=== PATIENT | female | born 1975 | race Caucasian/White ===

== ENCOUNTER 2021-03-12 10:33 | Emergency (ER) | payer MEDICARE, MEDICAID, SELFPAY ==
--- NOTE | ~2021-03-12 | XR_ITS ---
EXAMINATION: XR lumbar spine 2-3V DATE: 03/12/2021 11:37 INDICATION: Low back pain TECHNIQUE: Anteroposterior and lateral views of the lumbar spine, and cone-down lateral view of the l umbosacral junction were obtained. COMPARISON: None. FINDINGS: There is an age-indeterminate compression fracture of L5 with 10% loss of anterior vertebra l body height. Bone alignment is normal. The intervertebral disc spaces are maintained. Surgical clip s in the right upper quadrant are likely from prior cholecystectomy. The bowel gas pattern is normal. IMPRESSION: 1. Age-indeterminate L5 compression fracture. Reviewed, dictated and finalized at location A.
[2021-03-12 10:42] VITALS: BP 138/75; PULSE 78; RESP 20; TEMP 36.8; O2SAT 100
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
--- NOTE | 2021-03-12 11:12 | ECG_ITS ---
Measurements Intervals [place] Rate: 77 P: 42 ME: 117 QRS: 19 QRSD: 101 T: 16 QT: 362 QTc: 410 Interpretive Statements SINUS RHYTHM WITH SHORT ME INTERVAL BORDERLINE ECG Electronically Signed On 03-12-2021 12:09:58 CDT by Nimesh Herrera D.O.
== END 2021-03-12 13:15 | disposition home or self-care (01) ==
PROVIDERS: Emergency Provider Nurse Practitioner; PCP Physician Assistant
DX: S32.058A Other fracture of fifth lumbar vertebra, initial encounter for closed fracture (principal); J45.909 Unspecified asthma, uncomplicated; Z95.0 Presence of cardiac pacemaker; Z87.440 Personal history of urinary (tract) infections; Y04.2XXA Assault by strike against or bumped into by another person, initial encounter; F17.210 Nicotine dependence, cigarettes, uncomplicated; R94.31 Abnormal electrocardiogram [ECG] [EKG]
CPT/HCPCS: 72100; 93005; 99283

== ENCOUNTER 2025-01-24 13:47 | Outpatient (CLI) | payer MEDICARE, SELFPAY ==
--- NOTE | ~2025-01-24 | US_ITS ---
Pelvic ultrasound. Clinical History: Excessive and frequent menstruation Technique: Realtime transabdominal and transvaginal scanning of the pelvis was performed. Color flow Doppler and Doppler spectral analysis were performed. Findings: The uterus is anteverted, and measures 8.9 x 4.2 x 5.1 cm. The endometrial stripe has a th ickness of 5 mm. No focal mass is identified. The right ovary measures 1.7 x 1.1 x 1.6 cm. No significant right ovarian or adnexal mass is seen. The left ovary is not visualized. No significant left ovarian or adnexal mass is seen. There is no evidence of free fluid in the cul de sac. Impression: No significant abnormality seen. Left ovary not visualized. Reviewed, dictated and finalized at [facility]. Impression: No significant abnormality seen. Left ovary not visualized.
== END 2025-01-24 13:48 | disposition home or self-care (01) ==
LOC: MICIMG 13:48
PROVIDERS: PCP Internal Medicine; Visit Provider Obstetrics & Gynecology
DX: N92.0 Excessive and frequent menstruation with regular cycle (principal)
CPT/HCPCS: 76830; 76856

== ENCOUNTER 2025-01-24 14:23 | Outpatient (CLI) | payer MEDICARE, SELFPAY ==
[2025-01-24 14:53] LABS: Basophils Absolute Auto 0.1 K/mm3 (0.0-0.1); Basophils Percent Auto 0.5 % (0.2-1.2); Eosinophils Absolute Auto 0.2 K/mm3 (0-0.3); Eosinophils Percent Auto 1.6 % (0-4.4); Hematocrit 42.1 % (37.0-47.0); Hemoglobin 13.1 g/dL (12.0-15.0); Immature Granulocyte Absolute 0.06 K/mm3 (0.00-0.031); Immature Granulocyte Percent A 0.5 % (0-0.5); Lymphocytes Absolute Auto 3.22 K/mm3 (0.9-3.2); Lymphocytes Percent Auto 25.2 % (18.3-44.2); Mean Corpuscular HGB Conc 31.1 g/dl (32-36); Mean Corpuscular Hemoglobin 26.8 pg (26-34); Mean Corpuscular Volume 86.1 fl (80-100); Mean Platelet Volume 11.5 fl (7.4-10.4); Monocytes Percent Auto 7.4 % (2.6-8.5); Neutrophils Absolute Auto 8.3 K/mm3 (1.3-6.7); Neutrophils Percent Auto 64.8 % (45.5-73.1); Platelet Count Result 216 k/mm3 (150-375); Red Blood Count 4.89 M/mm3 (4.2-5.4); Red Cell Distribution Width 14.2 % (11.5-14.5); White Blood Count 12.8 K/mm3 (4.5-10.0)
--- OUTSIDE RECORDS SUMMARY | 2025-01-24 16:33 | XMS_ITS | Data Portability ---
Author Organization [facility] [employer], Main Office Address [address] [place] [address] Care Team Providers Care Property Disposal Officer Name Role Phone KALEIGH MCGOVERN Primary Care Provider KALEIGH MCGOVERN Referring Provider ROBIN TURNER Geophysical Computer Assessment Encounter Date Assessment Date Assessment LastModified by Organization Details LastModified Time 03/05/2024 03/05/2024 will treat uti with cipro, send urine for c&s will give fluconozole for thrush she requested meds for mucous, will try steroid pack and mucinex she believes those helped in the past, she refused a cxr today; she has long hx of lung and heart disease and I encouraged her to call back if not improving [email or web address] Not available 03/05/2024 12:54:10 07/05/2024 07/05/2024 This note is dictated and transcribed by [employer]. Software Quality Assurance Specialist variances may occur. Despite proofreading, typographical errors may occur. Occasional wrong-word or 'oafkx-g-oekw' substitutions may have occurred due to the inherent limitations of voice recording. Read the chart carefully and recognize, using context, where substitutions have occurred. [email or web address] Not available 07/06/2024 09:12:23 Plan of Treatment Reminders Order Date Submit Date Provider Last Modified By Organization Details Last Modified Time Details Appointments None recorded. Lab CMP, serum or plasma 2024 025 [facility], [address], [address], [place], [address], 09:36:23 urinalysis, dipstick 2023 024 [email or web address] [facility] [address], [address] [place], [address], 4 12:55:47 culture, urine + sensitivity 2023 024 [email or web address] [facility] (Lab), [address] [place], [address], 4 09:44:41 Referral gynecologis t referral - Please call patient to schedule. 2024 025 [email or web address] 52 Cathy Hamilton MD, [address], [address], [place], [address], 5 14:31:38 orthopedic surgeon referral 2023 024 [email or web address] Aixa Rizo DPM, [address] [place], [address], 4 08:24:15 Procedures None recorded. Surgeries None recorded. Imaging XR, ankle, 3 or more view 2023 024 [email or web address] [facility] [place], [address], [place], [address], 4 09:13:57 XR, chest, 2 view 2023 024 [facility] ([facility]), [address] [place], [address], 4 10:37:52 Medication Orders Macrobid 100 mg capsule 2024 025 [facility] #[id number], [address], [place], [place], [id number], 5 16:02:41 rosuvastati n 10 mg tablet [address] [facility]01422, [address], [place], [place], [id number], 5 14:14:08 Breo Ellipta 200 mcg-25 mcg/dose powder for inhalation [address] [facility] #94776, [address] [place], [id number], 5 14:14:08 cetirizine 10 mg tablet [address] [facility] #76261, [address], [id number], 5 14:14:08 ipratropium 0.5 mg-albutero l 3 mg (2.5 mg base)/3 mL nebulizatio n soln 2024 025 [facility] #97154, [address] [place], [id number], 5 12:54:46 Naprosyn 500 mg tablet 2023 024 [facility] #11422, [address] [place], [place], [id number], 4 09:30:41 fluconazole 150 mg tablet 2023 024 [email or web address] [facility] #94999, [address] [place], [id number], 4 15:23:04 Cipro 250 mg tablet 2023 024 [email or web address] [facility] #05055, [address] [place], [id number], 4 09:57:21 Mucus Relief ER 600 mg tablet, extended release 2023 024 [email or web address] [facility] #65508, [address], [place], [place], [id number], 4 11:42:37 Medrol (Perry) 4 mg tablets in a dose pack 2023 024 [email or web address] [facility] #57987, [address], [place], [place], [id number], 15:22:59 Patient TargetsNo targets recorded. Patient Instructions Encounter Date Encounter Id Patient Instructions Last Modified By Organization Details Last Modified Time 10/26/2024 [id number] dementia rating scale-2* Not available 10/26/2024 16:33:10 depression screening* Not available 10/26/2024 16:33:09 alcohol misuse* Not available 10/26/2024 16:33:09 multi-dimensiona l health assessment questionnaire* Not available 10/26/2024 16:33:09 advance directiv es: care instructions Not available 10/26/2024 16:33:09 advance care planning: care instructions Not available 10/26/2024 16:33:09 [place] Advance Directives [email or web address] Not available 10/26/2024 16:33:09 Personalized [facility] Plan and Screening Recommendations Advance Directives - Do you have one? No You have indicated that you are capable of preparing your advance care directive Advance Directives - Do we have your advance directive on file in your health record? No, please bring in a copy at your earliest convenience Primary Prevention/Interven tion (prevents or decreases the chance of common diseases from occurring) Smoking Risk: Smoker Refer to attached smoking cessation handouts Refer to attached handouts and prescription will be sent to pharmacy Continue to consider stopping smoking and call if we can assist you Alcohol Misuse Screening: Negative Weight: Appropriate Overwei ght continue your current weight loss efforts try to lose 5% of your body weight try to lose 10% of your body weight try to lose 15% of your body weight Physical activity: Need more exercise/physical activity minimum of 10-20 minutes of activity that causes mild breathlessness/day Nutrition: Good Average Fall Risk (screened today): Low Vaccines Pneumococcal: Influenza: Chronic Disease Risks Stroke: Low Risk Intermediate Risk I have no recommendations Act jannet diagnosis, Continue current treatment plan Heart Attack: Low risk Intermediate Risk I have no recommendations Act jannet diagnosis, Continue current treatment plan Clogging of the Arteries: Low risk Intermediate Risk I have no recommendations Act jannet diagnosis, Continue current treatment plan Diabetes: Low Risk I have no recommendations Secondary Prevention/Interven tion (detects treatable diseases before they may cause symptoms, disability, or ) Breast Cancer Screening with mammogram: Cervical/Uterine/Ov regla Cancer Screening: Osteoporosis Screening: No screening necessary Date Screening Last Performed: Colon Cancer Screening: Colonoscopy Fecal Occult Blood Cologuard (DNA stool test) In: Ordered Recomme nded Date Screening Last Performed: never Eye Disease Screening: Ordered Recommended today Dementia Risk: Low I have no recommendations Depression Screening: Negative [email or web address] Not available 10/26/2024 13:26:18 Reason for Referral Orthopedic Surgeon Referral for Localized, 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 Referring Physician: Kaleigh Mcgovern, Internal Medicine, Encounter Date: 10/26/2024 Results Created Date Observation Date Name Description Value Unit Range Abnormal Flag Note LastModifiedBy Organization Detail LastModifiedTime 02/19/20 24 02/19/2024 HEMOG LOBIN A1C HA1C 5.3 % 4.0-6. 0 Diabe adriano Josuée sam Crite damaris: <5.7% Consi stent with absen ce of diabe adriano 5.7-6 .4% Consi stent with incre ased risk for diabe adriano (pred iabet es) >OR=6 .5% Consi stent with diabe adriano REFER ENCE: Diabe adriano Care 2016, 39(De La Cruz ppl.1 ):s13 -s22 Not Available [facility] (Lab) [address] [place], [address], 02/19/2024 20:50:54 03/05/20 24 03/05/2024 CULTU RE URINE urc ===== ===== ===== ===== ===== ===== ===== ===== ===== ===== ===== ===== ===== ===== ===== ===== ===== ===== ===== ===== ===== ===== ===== ===== Speci men NO.: [id number] Exam Statu s: Final Proce dure: CULTU RE URINE ===== ===== ===== ===== ===== ===== ===== ===== ===== ===== ===== ===== ===== ===== ===== ===== ===== ===== ===== ===== ===== ===== ===== ===== Iso/R esult : 01 Esche bill a coli Antim icrob ic/Do se DENA Syste dena Urine __ ___ ___ Ampic illin >16 R R Aztre onam <=4 S S Cefot axime <=2 Cipro floxa damon <=0.2 5 S S Ertap enem <=0.5 SSUP SRES LTS SED RESU Genta micin <=2 [place] [address] [id number] Oxida se React ion N Extra Sensi tive Be NEG Amp/S ulbac bui >16/8 R R Ceftr iaxon e <=1 S S Cefta zidim e <=1 S S Cefta zidim e/K Clav <=0.2 5 SUPP RESS Cefot axime /K Clavu <=0.5 SUPP RESS Cefaz henry 4 I I Cefep timmy <=2 S S Cefur oxime <=4 S S Levof loxac in <=0.5 S S Merop enem <=1 S S Pip/T azo <=8 S S Trime th/De La Cruz lfa <=2/3 8 S S Tetra cycli ne <=4 S S Tobra mycin <=2 S S TS ED R ESUL TS ED R ESUL Cefta zidim e/Nikos derek <=8 SSUP SRES LTS SED RESU Nitro furan toin <=32 S S Not Available [facility] (Lab) [address] [place], [address], 03/09/2024 08:06:32 03/05/20 24 03/05/2024 urina lysis , dipst ick Leukocytes (reference range: negative sergio/ l) Trace Not Available [facility] [address] [place], [address], 03/05/2024 12:33:43 03/05/20 24 03/05/2024 urina lysis , dipst ick Nitrite (reference rage: negative mg/dl) positi ve Not Available [facility] [address] [place], [address], 03/05/2024 12:33:43 03/05/20 24 03/05/2024 urina lysis , dipst ick Urobilinogen (reference range: 0.2-1 mg/dl) 1 Not Available [facility] [address] [place], [address], 03/05/2024 12:33:43 03/05/20 24 03/05/2024 urina lysis , dipst ick Protein (reference range: negative mg/dl) Large Not Available [facility] [address] [place], [address], 03/05/2024 12:33:43 03/05/20 24 03/05/2024 urina lysis , dipst ick pH (reference range: 5-7) 5.5 Not Available [facility] [address] [place], [address], 03/05/2024 12:33:43 03/05/20 24 03/05/2024 urina lysis , dipst ick Blood (reference range: negative Smith/ l) Modera te Not Available [facility] [address] [place], [address], 03/05/2024 12:33:43 03/05/20 24 03/05/2024 urina lysis , dipst ick Specific [place] (reference range: 1.005-1.030) 1.030 Not Available [facility] [address] [place], [address], 03/05/2024 12:33:43 03/05/20 24 03/05/2024 urina lysis , dipst ick Ketone (reference range: negative mg/dl) Trace Not Available [facility] [address] [place], [address], 03/05/2024 12:33:43 03/05/20 24 03/05/2024 urina lysis , dipst ick Bilirubin (reference range: negative mg/dl) Small Not Available [facility] [address] [place], [address], 03/05/2024 12:33:43 03/05/20 24 03/05/2024 urina lysis , dipst ick Glucose (reference range: negative mg/dl) Negati ve Not Available [facility] [address] [place], [address], 03/05/2024 12:33:43 03/05/20 24 03/05/2024 urina lysis , dipst ick Appearance Slight ly Cloudy Not Available [facility] [address] [place], [address], 03/05/2024 12:33:43 03/05/20 24 03/05/2024 urina lysis , dipst ick Color Dark Yellow Not Available [facility] [address] [place], [address], 03/05/2024 12:33:43 09/02/20 24 09/02/2024 URINA LYSIS COMPL ETE/I RIS W/RFX color DARK-O RANGE abnormal Not Available [facility] (Lab) [address] [place], [address], 09/02/2024 19:47:14 09/02/20 24 09/02/2024 URINA LYSIS COMPL ETE/I RIS W/RFX appear EXTRA TURBID abnormal Not Available [facility] (Lab) [address] [place], [address], 09/02/2024 19:47:14 09/02/20 24 09/02/2024 URINA LYSIS COMPL ETE/I RIS W/RFX specific gravity 1.028 1.001- 1.030 Not Available [facility] (Lab) [address] [place], [address], 09/02/2024 19:47:14 09/02/20 24 09/02/2024 URINA LYSIS COMPL ETE/I RIS W/RFX pH 5.5 pH_un its 5.0-9. 0 Not Available [facility] (Lab) [address] [place], [address], 09/02/2024 19:47:14 09/02/2009/02/2024 URINA LYSIS COMPL ETE/I RIS W/RFX leukocytes NEGATI VE sergio/u L negati ve- Not Available [facility] (Lab) [address] [place], [address], 09/02/2024 19:47:14 09/02/20 24 09/02/2024 URINA LYSIS COMPL ETE/I RIS W/RFX nitrite 2+ negati ve- abnormal Not Available [facility] (Lab) [address] [place], [address], 09/02/2024 19:47:14 09/02/20 24 09/02/2024 URINA LYSIS COMPL ETE/I RIS W/RFX protein 50 mg/dL negati ve- abnormal Not Available [facility] (Lab) [address] [place], [address], 09/02/2024 19:47:14 09/02/20 24 09/02/2024 URINA LYSIS COMPL ETE/I RIS W/RFX glucose NORMAL mg/dL normal - Not Available [facility] (Lab) [address] [place], [address], 09/02/2024 19:47:14 09/02/20 24 09/02/2024 URINA LYSIS COMPL ETE/I RIS W/RFX ketones NEGATI VE mg/dL negati ve- Not Available [facility] (Lab) [address] [place], [address], 09/02/2024 19:47:14 09/02/20 24 09/02/2024 URINA LYSIS COMPL ETE/I RIS W/RFX urobilinogen NORMAL mg/dL normal - Not Available [facility] (Lab) [address] [place], [address], 09/02/2024 19:47:14 09/02/20 24 09/02/2024 URINA LYSIS COMPL ETE/I RIS W/RFX bilirubin NEGATI VE mg/dL negati ve- Not Available [facility] (Lab) [address] [place], [address], 09/02/2024 19:47:14 09/02/20 24 09/02/2024 URINA LYSIS COMPL ETE/I RIS W/RFX blood 0.5 mg/dL negati ve- abnormal Not Available [facility] (Lab) [address] [place], [address], 09/02/2024 19:47:14 09/02/20 24 09/02/2024 URINA LYSIS COMPL ETE/I RIS W/RFX color DARK-O RANGE abnormal Not Available [facility] (Lab) [address] [place], [address], 09/02/2024 19:47:20 09/02/20 24 09/02/2024 URINA LYSIS COMPL ETE/I RIS W/RFX appear EXTRA TURBID abnormal Not Available [facility] (Lab) [address] [place], [address], 09/02/2024 19:47:20 09/02/20 24 09/02/2024 URINA LYSIS COMPL ETE/I RIS W/RFX specific gravity 1.028 1.001- 1.030 Not Available [facility] (Lab) [address] [place], [address], 09/02/2024 19:47:20 09/02/20 24 09/02/2024 URINA LYSIS COMPL ETE/I RIS W/RFX pH 5.5 pH_un its 5.0-9. 0 Not Available [facility] (Lab) [address] [place], [address], 09/02/2024 19:47:20 09/02/20 24 09/02/2024 URINA LYSIS COMPL ETE/I RIS W/RFX leukocytes NEGATI VE sergio/u L negati ve- Not Available [facility] (Lab) [address] [place], [address], 09/02/2024 19:47:20 09/02/20 24 09/02/2024 URINA LYSIS COMPL ETE/I RIS W/RFX nitrite 2+ negati ve- abnormal Not Available [facility] (Lab) [address] [place], [address], 09/02/2024 19:47:20 09/02/20 24 09/02/2024 URINA LYSIS COMPL ETE/I RIS W/RFX protein 50 mg/dL negati ve- abnormal Not Available [facility] (Lab) [address] [place], [address], 09/02/2024 19:47:20 09/02/20 24 09/02/2024 URINA LYSIS COMPL ETE/I RIS W/RFX glucose NORMAL mg/dL normal - Not Available [facility] (Lab) [address] [place], [address], 09/02/2024 19:47:20 09/02/20 24 09/02/2024 URINA LYSIS COMPL ETE/I RIS W/RFX ketones NEGATI VE mg/dL negati ve- Not Available [facility] (Lab) [address] [place], [address], 09/02/2024 19:47:20 09/02/20 24 09/02/2024 URINA LYSIS COMPL ETE/I RIS W/RFX urobilinogen NORMAL mg/dL normal - Not Available [facility] (Lab) [address] [place], [address], 09/02/2024 19:47:20 09/02/20 24 09/02/2024 URINA LYSIS COMPL ETE/I RIS W/RFX bilirubin NEGATI VE mg/dL negati ve- Not Available [facility] (Lab) [address] [place], [address], 09/02/2024 19:47:20 09/02/20 24 09/02/2024 URINA LYSIS COMPL ETE/I RIS W/RFX blood 0.5 mg/dL negati ve- abnormal Not Available [facility] (Lab) [address] [place], [address], 09/02/2024 19:47:20 09/02/20 24 09/02/2024 URINA LYSIS COMPL ETE/I RIS W/RFX white blood cells 9-20 /i??h pfi?? 0-8 abnormal Not Available [facility] (Lab) [address] [place], [address], 09/02/2024 19:47:20 09/02/20 24 09/02/2024 URINA LYSIS COMPL ETE/I RIS W/RFX red blood cells 0-4 /i??h pfi?? 0-4 Not Available [facility] (Lab) [address] [place], [address], 09/02/2024 19:47:20 09/02/20 24 09/02/2024 URINA LYSIS COMPL ETE/I RIS W/RFX bacteria PACKED FIELD abnormal Not Available [facility] (Lab) [address] [place], [address], 09/02/2024 19:47:20 09/02/20 24 09/02/2024 URINA LYSIS COMPL ETE/I RIS W/RFX mucous MANY /i??l pfi?? abnormal Not Available [facility] (Lab) [address] [place], [address], 09/02/2024 19:47:20 09/02/20 24 09/02/2024 URINA LYSIS COMPL ETE/I RIS W/RFX squamous epithelial PACKED FIELD /i??l pfi?? abnormal Not Available [facility] (Lab) [address] [place], [address], 09/02/2024 19:47:20 09/02/20 24 09/02/2024 CULTU RE URINE urc ===== ===== ===== ===== ===== ===== ===== ===== ===== ===== ===== ===== ===== ===== ===== ===== ===== ===== ===== ===== ===== ===== ===== ===== Speci men NO.: [id number] Exam Statu s: Final Proce dure: CULTU RE URINE ===== ===== ===== ===== ===== ===== ===== ===== ===== ===== ===== ===== ===== ===== ===== ===== ===== ===== ===== ===== ===== ===== ===== ===== Iso/R esult : 01 Esche bill a coli Antim icrob ic/Do se DENA Syste dena Urine __ ___ ___ Ampic illin >16 R R Aztre onam <=4 S S Cefot axime <=2 Cipro floxa damon <=0.2 5 S S Genta micin <=2 S S Bioty pe 97920 51649 Oxida se React ion N Extra Sensi tive Be NEG Amp/S ulbac bui 8 I I Ceftr iaxon e <=1 S S Cefta zidim e <=1 S S Cefaz henry <=2 S S Cefep timmy <=2 S S Cefur oxime <=4 S S Levof loxac in <=0.5 S S Merop enem <=1 S S Pip/T azo <=8 S S Trime th/De La Cruz lfa <=2/3 8 S S Tetra cycli ne <=4 S S Tobra mycin <=2 S S Nitro furan toin <=32 S S Not Available [facility] (Lab) [address], [place], [address], 09/05/2024 07:27:35 09/02/20 24 09/02/2024 urina lysis , dipst ick Leukocytes (reference range: negative sergio/ l) Negati ve Not Available [facility] [address] [place], [address], 09/02/2024 17:22:37 09/02/20 24 09/02/2024 urina lysis , dipst ick Nitrite (reference rage: negative mg/dl) positi ve Not Available [facility] [address] [place], [address], 09/02/2024 17:22:37 09/02/20 24 09/02/2024 urina lysis , dipst ick Urobilinogen (reference range: 0.2-1 mg/dl) 1 Not Available [facility] [address] [place], [address], 09/02/2024 17:22:37 09/02/20 24 09/02/2024 urina lysis , dipst ick Protein (reference range: negative mg/dl) Small Not Available [facility] [address] [place], [address], 09/02/2024 17:22:37 09/02/20 24 09/02/2024 urina lysis , dipst ick pH (reference range: 5-7) 5.5 Not Available [facility] [address] [place], [address], 09/02/2024 17:22:37 09/02/20 24 09/02/2024 urina lysis , dipst ick Blood (reference range: negative Smith/ l) Large Not Available [facility] [address] [place], [address], 09/02/2024 17:22:37 09/02/20 24 09/02/2024 urina lysis , dipst ick Specific [place] (reference range: 1.005-1.030) 1.030 Not Available [facility] [address] [place], [address], 09/02/2024 17:22:37 09/02/20 24 09/02/2024 urina lysis , dipst ick Ketone (reference range: negative mg/dl) Negati ve Not Available [facility] [address] [place], [address], 09/02/2024 17:22:37 09/02/20 24 09/02/2024 urina lysis , dipst ick Bilirubin (reference range: negative mg/dl) Small Not Available [facility] [address] [place], [address], 09/02/2024 17:22:37 09/02/20 24 09/02/2024 urina lysis , dipst ick Glucose (reference range: negative mg/dl) Negati ve Not Available [facility] [address] [place], [address], 09/02/2024 17:22:37 09/02/20 24 09/02/2024 urina lysis , dipst ick Appearance Cloudy Not Available [facility] [address] [place], [address], 09/02/2024 17:22:37 09/02/20 24 09/02/2024 urina lysis , dipst ick Color Dark Yellow Not Available [facility] [address] [place], [address], 09/02/2024 17:22:37 05/25/20 24 05/25/2024 XR, chest , 2 view [facility] [address] [place] [address] [phone] Patien t Name: MONICA GU Access ion #: [id number] Sex: F : 1974 8 Dictat ed By: Herson Parkinson ms Attend ing Physic no: EULALIO MCGOVERN ER Orderi Physic no: EULALIO MCGOVERN ER Exam Date: 2023 08:57 AM Exam Name: XR CHEST 2V Admitt ing Diagno sis(es ): XR CHEST 2V CLINIC AL HISTOR Y: chest wall pain COMPAR CAROLYN: Prior chest radiog raph 2023. TECHNI QUE: Fronta l and latera l view of the chest was obtain ed FINDIN GS: Lines and Tubes: Dual lead pacema ker with right atrial and ventri cular leads. Lungs: No focal consol idatio n. Pleura : No effusi on. No pneumo thorax . Cardio medias tinal contou rs: Unrema rkable Bones: No acute osseou s abnorm ality. IMPRES CRUZ: 1. No acute cardio pulmon zehra diseas e. Electr onical ly Signed by: Herson Parkinson ms at 2023 09:35: 45 AM Page 1 [email or web address] [facility] (Imaging) [address] [place], [address], 06/02/2024 12:57:46 07/06/20 24 XR, ankle , 3 or more view No observ ation record ed. [email or web address] [facility] [place] [address], [place], [address], 07/06/2024 09:13:56 Result Notes None recorded. Problems Name Problem SNOMED Code Status Onset Date Resolution Date Notes Provider Name and Address Organization Details Recorded Time Dyspnea on exertion 83103732 Completed 202202/19/2024 Nel cazares RMA null, [place] [facility] 14:17:51 Genital herpes simplex 01197817 Active 2023 Kaleigh Mcgovern MD [address] [place] [address], [facility] [address], [place], [address] , [place] [facility] 14:23:08 Osteoarth ritis 141586234 Active 2023 Nel cazares RMA null, [place] [facility] 14:18:32 Vitamin D deficienc y 02507473 Active 2023 Nel cazares RMA null, [place] [facility] 14:18:52 Gastroeso phageal reflux disease 048847607 Active 2023 Nel cazares RMA null, [place] [facility] 14:18:35 Overactiv e urinary bladder 008888707 Active 2023 Nel cazares RMA null, [place] [facility] 14:18:44 Smoker 91397268 Active 2023 Nel cazares RMA null, [place] [facility] 14:18:38 Obesity 956976936 Active 2023 Nel cazares RMA null, [place] [facility] 05/02/202 4 14:18:33 Fracture of femur 88048430 Active 2023 Nel cazares RMA null, [facility] 4 14:18:05 Fracture of femur 77444416 Completed 202302/19/2024 Keara Raegan null, [place] [facility] 5 12:07:26 Allergic rhinitis 34690652 Active 2023 Nel cazares RMA null, [facility] 4 14:17:43 Abnormal blood test [id number] 9102 Completed 202302/19/2024 Nel cazares RMA null, [facility] 4 14:17:46 Hyperglyc emia 87128492 Active 2023 Kaleigh Mcgovern MD [address], [place], [address] , [facility] 4 14:31:27 Hyperlipi demia 10073356 Active 2023 Kaleigh Mcgovern MD [address], [place], [address] , [facility] [facility] 4 14:32:13 Dysuria 84391491 Active 2023 CHEN Arteaga null, [facility] 4 12:34:08 Candidias is of mouth 71859913 Active 2023 Carmen Hayes NP [address], [address], [place], [address] , [facility] 4 12:39:41 Bronchiti s 49919629 Active 2023 Carmen Hayes NP [address], [address], [place], [address] , [facility] 4 12:45:12 Neck pain 79069069 Active 2023 Charlee Lee LPN null, [place] [facility] [place] [facility] 4 12:53:40 Chest wall pain 094029700 Active 2023 Kaleigh Mcgovern MD [address], [address], [place], [address] , [facility] [place] [facility] 4 09:27:21 Pain of right knee joint 11569554003 4100 Active 2023 CHEN Jackman null, [facility] [place] [facility] 4 16:56:38 Pain of right ankle joint 76885359746 831401 Active 2023 Robin Turner DPM [address], [address], [place], [address] , [facility] 4 12:22:59 Localized , primary osteoarth ritis of the ankle and/or foot 167631665 Active 2023 Robin Turner DPM [address], [address], [place], [address] , [facility] 4 12:23:10 Acquired varus deformity of right ankle 42141710266 9102 Active 2023 Robin Turner DPM [address], [address], [place], [address] , [facility] 4 12:24:29 Urinary tract infectiou s disease 43168669 Active 2023 Akilah Gonsalves MA null, [place] [facility] 4 16:45:15 Sinusitis 66879654 Active 2023 Akilah Gonsalves MA null, [place] [facility] 4 10:30:35 Fracture of femur 12393010 Active 2024 Keara Carlin null, [place] [facility] 5 12:07:26 Vaginal discharge 895089066 Active 2024 Kaleigh Mcgovern MD [address], [address], [place], [address] , [facility] [place] [facility] 5 12:50:19 Acute urinary tract infection 383667670 Active 2024 Kaleigh Mcgovern MD [address] [facility] [address], [place], [address] , [facility] 5 16:00:29 Pain of right ankle joint 10275602889 514248 Completed 202010/22/2023 Robin Turner DPM [address] [facility], [facility] [address], [place], [address] , 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 912518601 Active 2020 Nel cazares RMA null, [place] [facility] 4 14:17:38 Ankle joint effusion 788460018 Completed 201702/19/2024 Nel cazares RMA null, [place] [facility] 4 14:18:31 Osteophyt e of bone 97229033330 9100 Active 2017 Nel cazares RMA null, [place] [facility] 4 14:18:49 Ankle pain 237452895 Completed 201710/22/2023 Nel cazares RMA null, [place] [facility] 4 14:17:48 History of SARS-CoV- 2 30230251759 0940263 Completed 202010/22/2023 Nel cazares RMA null, [place] [facility] 4 14:17:41 Pulmonary eosinophi jesus 418748555 Active 2020 Nel cazares RMA null, [place] [facility] 14:18:42 Problem Notes None recorded. Procedures Surgical History Date Name Laterality Status Provider Name and Address Organization Details Recorded Time 10/26/19 Medicare Wellness CPT Code, subsequent completed Maria Victoria Brannon RN [facility] 10/26/2024 13:14:22 10/26/19 25 Advanced Care Planning completed Maria Victoria Brannon RN [facility] 10/26/2024 13:17:45 Pacemaker completed Not Available Counts include 234 beds at the [facility] 12/18/2022 04:41:02 Tubal Ligation completed Not Available Counts include 234 beds at the [facility] 12/18/2022 04:41:02 reduction of open fracture of leg completed Not Available Counts include 234 beds at the [facility] 12/18/2022 04:41:02 section completed Not Available Counts include 234 beds at the [facility] 12/18/2022 04:41:02 Tonsillectomy and/or Adenoidectomy completed Not Available Counts include 234 beds at the [facility] 12/18/2022 04:41:02 Knee Surgery completed Not Available Counts include 234 beds at the [facility] 12/18/2022 04:41:02 cholecystectomy completed Not Available [facility] 12/18/2022 04:41:02 reduction of dislocation of elbow completed Not Available [facility] 12/18/2022 04:41:02 Orthopedic Surgery completed CHEN Caldera [facility] [employer] 10/22/2023 14:20:05 Imaging Results Imaging Date Name Status LastModified by Organiz ation Details LastModified Time 05/25/2024 XR, chest, 2 view completed [email or web address] [facility] (Imaging) [address] [place], [address], 06/02/2024 12:57:46 07/06/2024 XR, ankle, 3 or more view completed [email or web address] [facility] [place] [address] [facility] [address], [place], [address], 07/06/2024 09:13:56 Procedure Notes None recorded. Medical Equipment None Reported. Allergies Allergen ID Allergen Name Allergen Category Reaction Reaction Severity Criticality Documentation Date Start Date Code Code System Note Provider Name and Address Organization Details Recorded Time 14094 Cipro medicatio n vomiting Not available Not available 11/10/202483928 3 RxNorm Kaleigh Mcgovern MD [address], [address], [place], [address] , [facility] [employer] 5 16:02:16 6909 shellfish derived food,medi cation Not available Not available Not available 12/18/2022 13799 UNK Not Available [facility] 3 04:51:58 6910 iodine medicatio n Not available Not available Not available 12/18/2022 5933 RxNorm Not Available [facility] 3 04:51:58 Medications Name Sig Start Date Stop Date Status Note LastModified by Organization Details LastModified Time cyclobenz aprine 10 mg tablet 05/07 completed Not Available Not Available Not Available amoxicill in 500 mg capsule Take 1 capsule every 8 hours by oral route for 7 days. 10/15 completed per 10/07/24 patient case / ds Not Available Not Available Not Available fluconazo le 100 mg tablet TK 1 T PO QD FOR 3 DAYS 02/24 completed Not Available Not Available Not Available neomycin- polymyxin -hydrocor t 3.5 mg/mL-10, 000 unit/mL-1 % ear solution 03/02 completed Not Available Not Available Not Available nystatin 100,000 unit/mL oral suspensio n SHAKE LIQUID AND TAKE 5 ML BY MOUTH FOUR TIMES DAILY 10/22 completed Not Available Not Available Not Available prednison e 10 mg tablet 03/02 completed Not Available Not Available Not Available venlafaxi ne ER 75 mg capsule,e xtended release 24 hr 02/24 completed Not Available Not Available Not Available doxycycli ne hyclate 100 mg capsule TAKE 1 CAPSULE BY MOUTH TWICE DAILY FOR 7 DAYS 07/05 completed Not Available Not Available Not Available ipratropi um 0.5 mg-albute rol 3 mg (2.5 mg base)/3 mL nebulizat ion soln Inhale 3 mL 4 times a day by nebuliza tion route as needed. 2024 active Not Available Not Available Not Avai lable cetirizin e 10 mg tablet TAKE 1 TABLET BY MOUTH EVERY DAY NEEDED FOR ALLERGIE S 2024 active Not Available Not Available Not Avai lable oxybutyni n chloride ER 10 mg tablet,ex tended release 24 hr TAKE 1 TABLET BY MOUTH EVERY DAY 2024 active Not Available Not Available Not Avai lable azithromy damon 250 mg tablet TAKE 2 TABLETS BY MOUTH FOR 1 DAY THEN TAKE 1 TABLET BY MOUTH DAILY FOR 4 DAYS DIRECTED 03/04 completed Not Available Not Available Not Available ibuprofen 800 mg tablet 02/24 completed Not Available Not Available Not Available fluconazo le 150 mg tablet Take 1 tablet every 72 hours by oral route for 9 days. 04/19 completed Not Available Not Available Not Available hydrocodo ne 5 mg-acetam inophen 325 mg tablet 05/10 completed Not Available Not Available Not Available ondansetr on HCl 8 mg tablet 10/22 completed Not Available Not Available Not Available meloxicam 15 mg tablet TAKE 1 TABLET BY MOUTH EVERY DAY NEEDED 05/10 completed Not Available Not Available Not Available naltrexon e 50 mg tablet 02/24 completed Not Available Not Available Not Available ondansetr on HCl 4 mg tablet 04/06 completed Not Available Not Available Not Available Medrol ([place]) 4 mg tablets in a dose pack Take 1 dose pk by oral route as directed . 04/19 completed Not Available Not Available Not Available prednison e 20 mg tablet TAKE 3 TABLETS BY MOUTH ONCE DAILY FOR 5 DAYS 07/05 completed Not Available Not Available Not Available dexametha sone 6 mg tablet TAKE 1 TABLET BY MOUTH EVERY DAY active Not Available Not Available No t Available metronida zole 500 mg tablet TAKE 1 TABLET BY MOUTH TWICE DAILY. DO NOT CONSUME ANY ALCOHOL WHILE TAKING THIS MEDICATI ON 10/22 completed Not Available Not Available Not Available ciproflox acin 250 mg tablet TAKE 1 TABLET BY MOUTH EVERY 12 HOURS FOR 5 DAYS 10/15 completed Not Available Not Available Not Available prochlorp erazine maleate 10 mg tablet 02/24 completed Not Available Not Available Not Available valacyclo vir 500 mg tablet TAKE 2 TABLETS BY MOUTH THREE TIMES DAILY 05/07 completed Not Available Not Available Not Available ciproflox acin 500 mg tablet TAKE 1 TABLET BY MOUTH TWICE DAILY 05/07 completed Not Available Not Available Not Available sulfameth oxazole 800 mg-trimet hoprim 160 mg tablet TAKE 1 TABLET BY MOUTH TWICE DAILY 07/05 completed Not Available Not Available Not Available amoxicill in 500 mg tablet 04/06 completed Not Available Not Available Not Available acyclovir 800 mg tablet TAKE 1 TABLET BY MOUTH EVERY DAY DIRECTED 2024 active Not Available Not Available Not Avai lable ondansetr on 8 mg disintegr ating tablet active Not Available Not Available Not Available ketorolac 10 mg tablet TAKE 1 TABLET BY MOUTH EVERY 6-8 HOURS FOR PAIN CONTROL. DO NOT EXCEED 40 MG IN 24 HOURS active Not Available Not Available No t Available meloxicam 7.5 mg tablet 02/24 completed Not Available Not Available Not Available carbamaze pine 200 mg tablet 03/02 completed Not Available Not Available Not Available bupropion HCl 100 mg tablet 04/06 completed Not Available Not Available Not Available amoxicill in 875 mg tablet TAKE 1 TABLET BY MOUTH EVERY 12 HOURS FOR 7 DAYS 07/05 completed Not Available Not Available Not Available famotidin e 20 mg tablet 10/22 completed Not Available Not Available Not Available meclizine 25 mg tablet 02/24 completed Not Available Not Available Not Available phenazopy ridine 100 mg tablet 07/21 completed Not Available Not Available Not Available benzonata te 100 mg capsule TAKE 1 CAPSULE BY MOUTH THREE TIMES DAILY FOR 10 DAYS NEEDED active Not Available Not Available No t Available cephalexi n 500 mg capsule TAKE 1 CAPSULE BY MOUTH TWICE DAILY 03/02 completed Not Available Not Available Not Available ranitidin e 150 mg tablet 04/06 completed Not Available Not Available Not Available prednison e 50 mg tablet 02/24 completed Not Available Not Available Not Available diclofena c potassium 50 mg tablet 02/24 completed Not Available Not Available Not Available omeprazol e 20 mg capsule,d elayed release TAKE ONE CAPSULE BY MOUTH EVERY MORNING FOR STOMACH active Not Available Not Available No t Available monteluka st 10 mg tablet TAKE 1 TABLET BY MOUTH EVERY NIGHT FOR BREATHIN G 2024 active Not Available Not Available Not Avai lable pravastat in 20 mg tablet 05/07 completed Not Available Not Available Not Available norethind bettie acetate 5 mg tablet 02/24 completed Not Available Not Available Not Available ergocalci ferol (vitamin D2) 1,250 mcg (50,000 unit) capsule TAKE 1 CAPSULE BY MOUTH EVERY WEEK 07/05 completed Not Available Not Available Not Available Nasonex 50 mcg/actua tion [place] 2 sprays every day by intranas al route. 10/30 completed Not Available Not Available Not Available levofloxa damon 500 mg tablet TAKE 1 TABLET BY MOUTH DAILY FOR 7 DAYS 07/05 completed Not Available Not Available Not Available levofloxa damon 750 mg tablet 02/24 completed Not Available Not Available Not Available albuterol sulfate HFA 90 mcg/actua tion aerosol inhaler INHALE 2 PUFFS BY MOUTH EVERY 4 TO 6 HOURS DIRECTED active Not Available Not Available No t Available SSD 1 % topical cream 04/06 completed Not Available Not Available Not Available celecoxib 100 mg capsule TAKE 1 CAPSULE BY MOUTH EVERY 12 HOURS active Not Available Not Available No t Available ondansetr on 4 mg disintegr ating tablet 02/24 completed Not Available Not Available Not Available cefdinir 300 mg capsule 05/07 completed Not Available Not Available Not Available fluticaso ne propionat e 50 mcg/actua tion nasal spray,jeremias pension SPRAY 1 SPRAY EVERY DAY BY INTRANAS AL ROUTE DIRECTED FOR 30 DAYS. 07/05 completed Not Available Not Available Not Available doxycycli ne hyclate 100 mg tablet TK 1 T PO ONCE D 02/24 completed Not Available Not Available Not Available naproxen 500 mg tablet TAKE 1 TABLET BY MOUTH TWICE DAILY active Not Available Not Available No t Available amoxicill in 875 mg-potass ium clavulana te 125 mg tablet TAKE 1 TABLET BY MOUTH EVERY 12 HOURS FOR 10 DAYS active Not Available Not Available No t Available neomycin- polymyxin -hydrocor t 3.5 mg-10,000 unit/mL-1 % ear drops,jeremias p 05/07 completed Not Available Not Available Not Available cyclobenz aprine 5 mg tablet TAKE 1 TABLET BY MOUTH THREE TIMES DAILY NEEDED active Not Available Not Available No t Available rosuvasta tin 10 mg tablet Take 1 tablet every day by oral route. 2024 active Not Available Not Available Not Avai lable nitrofura ntoin monohydra te/macroc rystals 100 mg capsule TAKE 1 CAPSULE BY MOUTH EVERY 12 HOURS active Not Available Not Available No t Available Flovent HFA 110 mcg/actua tion aerosol inhaler INL 2 PFS PO BID 05/30 completed Not Available Not Available Not Available Flovent HFA 220 mcg/actua tion aerosol inhaler INL 2 PFS PO BID active Not Available Not Available No t Available Symbicort 160 mcg-4.5 mcg/actua tion HFA aerosol inhaler 02/24 completed Not Available Not Available Not Available Tri-Leges t Fe 1-20 (5)/1-30( 7)/1mg-35 mcg(9) tablet 02/24 completed Not Available Not Available Not Available Mucus Relief ER 600 mg tablet, extended release TK 1 TO 2 TS PO BID. NO NOT EXCEED 4 TABLETS IN 24 HOURS 07/05 completed Not Available Not Available Not Available Dulera 200 mcg-5 mcg/actua tion HFA aerosol inhaler Inhale 2 puffs every 12 hours by inhalati on route. 10/30 completed Not Available Not Available Not Available Combivent Respimat 20 mcg-100 mcg/actua tion solution for inhalatio n 02/24 completed Not Available Not Available Not Available Spiriva Respimat 2.5 mcg/actua tion solution for inhalatio n INHALE 2 PUFFS BY MOUTH EVERY DAY DIRECTED 2024 active Not Available Not Available Not Avai lable Incruse Ellipta 62.5 mcg/actua tion powder for inhalatio n Inhale 1 puff every day by inhalati on route as directed for 30 days. active Not Available Not Available No t Available fluticaso ne furoate 200 mcg-vilan terol 25 mcg/dose inhalatio n powder INHALE 1 PUFF BY MOUTH EVERY DAY DIRECTED active Not Available Not Available No t Available Compact Space Chamber USE with inhaler 10/22 completed Not Available Not Available Not Available Annovera 0.15 mg-0.013 mg/24 hr vaginal ring 10/22 completed Not Available Not Available Not Available Vitals Date Recorded Body height Body mass index (BMI) Body weight Body temperature Heart rate Oxygen saturation Oxygen saturation in Arterial blood by Pulse oximetry Systolic blood pressure Diastolic blood pressure Provider Name and Address Organization Details Last Updated DateTime 4 167.64 cm 39.8 kg/m2 406101. 6 g 97.4 [degF] 80 /min 99 % 99 % 112 mm[Hg] 70 mm[Hg] Radha Aponte Mare [facility] [employer] [facility] 4 12:23:22 Date Recorded Body height Body mass index (BMI) Body weight Body temperature Heart rate Oxygen saturation Oxygen saturation in Arterial blood by Pulse oximetry Systolic blood pressure Diastolic blood pressure Provider Name and Address Organization Details Last Updated DateTime 4 167.64 cm 39.2 kg/m2 633137. 95 g 97.2 [degF] 94 /min 97 % 97 % 100 mm[Hg] 70 mm[Hg] Nelmare deluca Mare [facility] [employer] [facility] 4 09:13:21 Date Recorded Body height Body mass index (BMI) Body weight Heart rate Respiratory rate Body temperature Oxygen saturation Oxygen saturation in Arterial blood by Pulse oximetry Systolic blood pressure Diastolic blood pressure Provider Name and Address Organization Details Last Updated DateTime 4 167.64 cm 39.2 kg/m2 437638. 95 g 92 /min 14 /min 97.6 [degF] 97 % 97 % 120 mm[Hg] 76 mm[Hg] Christine Rapp [facility] [employer] [facility] 4 11:57:23 Date Recorded Body weight Body temperature Heart rate Oxygen saturation Oxygen saturation in Arterial blood by Pulse oximetry Systolic blood pressure Diastolic blood pressure Provider Name and Address Organization Details Last Updated DateTime 5 548528. 32 g 97.1 [degF] 72 /min 97 % 97 % 128 mm[Hg] 78 mm[Hg] Keara villarreal [facility] [employer] [facility] 5 12:06:15 Date Recorded Body height Body mass index (BMI) Body weight Heart rate Oxygen saturation Oxygen saturation in Arterial blood by Pulse oximetry Systolic blood pressure Diastolic blood pressure Provider Name and Address Organization Details Last Updated DateTime 5 167.64 cm 36.5 kg/m2 576188. 88 g 75 /min 99 % 99 % 109 mm[Hg] 82 mm[Hg] Keara villarreal [employer] 15:50:22 Social History Question Answer Notes LastModified by Organization Details LastModified Time Tobacco Smoking Status Current Every Day Smoker quit 2018 Restarted 2022 Nel Chandra, CHEN bar, [employer] 10/22/2023 14:22:17 Do You Have An Advance Directive? No Paperwork Provided [email or web address] Information not available 10/26/2024 What Is Your Level Of Alcohol Consumption? Occasional [id number] Information not available 12/18/2022 Is Blood Transfusion Acceptable In An Emergency? Yes Information not available 10/22/2023 What Is Your Level Of Caffeine Consumption? None [id number] Information not available 12/18/2022 How Much Tobacco Do You Chew? None [id number] Information not available 12/18/2022 In The 14 Days Before Symptom Onset, Have You Had Close Contact With A Laboratory-conf irmed COVID-19 While That Case Was Ill? No Not Applicable [email or web address] Information not available 10/26/2024 In The 14 Days Before Symptom Onset, Have You Had Close Contact With A Person Who Is Under Investigation For COVID-19 While That Person Was Ill? No [id number] [id number] Information not available 12/18/2022 Are You Currently Employed? No Disabled [email or web address] Information not available 10/26/2024 What Type Of Diet Are You Following? REGULAR [id number].[id number] [id number] Information not available 12/18/2022 Which Illicit Or Recreational Drugs Have You Used? None [email or web address].[id number] [id number] Information not available 12/18/2022 Do You Or Have You Ever Used E-cigarettes Or Vape? Never Used Electronic Cigarettes [id number] [id number] Information not available 12/18/2022 What Is The Highest Grade Or Level Of School You Have Completed Or The Highest Degree You Have Received? [id number] Information not available 10/22/2023 Do You Have An Electrostatic Air Filter? Yes [id number] [id number] Information not available 12/18/2022 How Many Days Of Moderate To Strenuous Exercise, Like A Brisk Walk, Did You Do In The Last 7 Days? [id number] Information not available 10/26/2024 Have There Been Any Changes To Your Family Or Social Situation? Yes Mother In LTC, Martial Issues (10/26/24) [email or web address] Information not available 10/26/2024 What Is The Fluoride Status Of Your Home? Fluoridated [email or web address] Information not available 10/26/2024 When Did You Quit Smoking? 1-5yearssincelast cigarette [id number].[id number] [id number] Information not available 12/18/2022 Are There Any Guns Present In Your Home? No [email or web address] Information not available 10/26/2024 Do You Have A Humidifier? No MIGRATION.[id number] [id number] Information not available 12/18/2022 Do You Use Insect Repellent Routinely? No Information not available 10/22/2023 [facility] You Live? [facility] Information not available 10/22/2023 Advance Directive- Providers Has Reviewed Directive And Consents To Follow Them (insert Provider Name With Any Objectives In Notes Field) No [email or web address] Information not available 10/26/2024 Presence Of Domestic Violence No [email or web address] Information not available 10/26/2024 Guns Present In The Home? No [email or web address] Information not available 10/26/2024 Are You Able To Care For Yourself? Yes [email or web address] Information not available 10/26/2024 Are You Blind Or Do Yo Have Difficulty Seeing? No [email or web address] Information not available 10/26/2024 Are You Deaf Or Do You Have Serious Difficulty Hearing? No [email or web address] Information not available 10/26/2024 General Stress Level? Moderate [email or web address] Information not available 10/26/2024 Live Alone Of With Others? With Others [email or web address] Information not available 10/26/2024 Do You Have A Medical Power Of Candy Wrapping Machine Operator? No [email or web address] Information not available 10/26/2024 Do You Have Moisture Problems In Your Home? No [id number] [id number] Information not available 12/18/2022 What Was The Date Of Your Most Recent Tobacco Screening? 10/26/2024 [email or web address] Information not available 10/26/2024 How Many Children Do You Have? 5 [id number] [id number] Information not available 12/18/2022 Have You Ever Been Counseled For Unhealthy Alcohol Use? No Information not available 10/22/2023 Do You Have Any Pets? Yes [id number].[id number] [id number] Information not available 12/18/2022 What Is Your Relationship Status? Information not available 10/22/2023 Do You Use Your Seat Belt Or Car Seat Routinely? Yes Information not available 10/22/2023 Are You Sexually Active? Yes [email or web address] Information not available 10/26/2024 Do You Have Smoke And Carbon Monoxide Detectors In Your Home? Yes Information not available 10/22/2023 At What Age Did You Start Smoking Tobacco? 36 [id number] [id number] Information not available 12/18/2022 Are You Passively Exposed To Smoke? Yes Information not available 10/22/2023 Do You Or Have You Ever Used Smokeless Tobacco? Never Used Smokeless Tobacco MIGRATION.0301 [id number] Information not available 12/18/2022 Are There Any Smokers In Your House? Yes Information not available 10/22/2023 How Much Tobacco Do You Smoke? 0.5 PPD MIGRATION.0301 [id number] Information not available 12/18/2022 What Types Of Sporting Activities Do You Participate In? None [email or web address] Information not available 10/26/2024 Do You Feel Stressed (tense, Restless, Nervous, Or Anxious, Or Unable To Sleep At Night)? [id number] Information not available 10/22/2023 Do You Use Any Illicit Or Recreational Drugs? No Information not available 10/22/2023 Do You Use Sunscreen Routinely? No Information not available 10/22/2023 Has Tobacco Cessation Counseling Been Provided? Yes [email or web address] Information not available 10/26/2024 On What Date Was Tobacco Cessation Counseling Provided? 10/26/2024 Paperwork Provided [email or web address] Information not available 10/26/2024 Have You Recently Traveled Abroad? No Information not available 10/22/2023 Do You Have Any Dietary Restrictions? No Information not available 10/22/2023 Do You Or Have You Ever Used Any Other Forms Of Tobacco Or Nicotine? No [email or web address] Information not available 10/26/2024 How Many Days In The Past Year Have You Consumed 4 Or More Drinks? 0 [email or web address] Information not available 10/26/2024 Sex: Female Functional Status Question Answer Note LastModified by Organization D etails LastModified Time What is your exercise level? None Information not available 10/22/2023 Mental Status None recorded. Family History Relationship Description Onset Age of this Age Resolved Age Notes LastModified by Organization Details LastModified Time Mother Diabetes mellitus Not available 14:20:21 Maternal Grandfather Family history of malignant neoplasm [email or web address] Not available 2023 12:15:30 Maternal Grandmother Family history of malignant neoplasm Not available 2023 12:15:30 Maternal Aunt Family history of malignant neoplasm Breast cancer [email or web address] Not available 03/05/2024 12:15:30 Medical History No medical history recorded. Gynecological HistoryNo gynecological history recorded. Obstetrics History GPAL:G 0 P 0 0 0 0 Immunizations Vaccine Type Date Status Note Provider Nam e and Address Organization Details Recorded Time Influenza, split virus, trivalent, PF 10/26/2024 completed Kaleigh Mcgovern MD [address] [facility] [address], [place], [address], [facility] 10/26/2024 16:33:20 Past Encounters Encounter ID Performer Location Encounter Start Date Encounter Closed Date Diagnosis/Indication Diagnosis SNOMED-CT Code Diagnosis ICD10 Code Diagnosis Note [id number] [facility] [place] [address] [facility] [address] [place] [address] 03/02/2021 00:00:00 03/02/2021 16:55:53 [id number] [facility] [place] [address] [place] [address] 04/12/2021 00:00:00 04/12/2021 14:30:02 [id number] [facility] [place] [address] [place] [address] 05/10/2021 00:00:00 05/10/2021 17:21:41 [id number] [facility] [place] [address] [place] [address] 06/14/2021 00:00:00 06/14/2021 12:01:24 [id number] [facility] [place] [address] [place] [address] 12/03/2021 00:00:00 12/03/2021 16:41:41 [id number] [facility] Pul[facility] [place] [address] [place] [address] 05/07/2022 00:00:00 05/07/2022 16:36:55 [id number] Mandy Xiomy, [facility] Pulmon[facility] [place] [address] [place] [address] 03/04/2023 15:01:02 03/04/2023 15:45:54 Asthma 770761704 J45.909 ACT 25Continue Breo Ellipta 200 one puff daily.Cont inue LAMA, Spiriva Respimat 2.5 two puffs dailyInstr ucted on techniqueH as tried and failed incruse, spiriva handihaler and combiventI nstructed on use and technique. Rescue DAVID PRNDiscuss ed reportable signs and symptoms.C heck PFTRTC in 4 months, PRN for concerns Dyspnea on exertion 6084 5006 R06.09 Check labshas had weight gain Nicotine dependence 5629 4008 Z87.891 Smoking cessation counseling and techniques reviewed at length.Lit erature reviewed.A void triggers, support groups.Dis traction techniques Greater than 3 but less than 10 minutes spent discussing cessation. Declines NRT.Discus sed Rx options if needed in the future.Sta ff [facility] History of SARS-CoV-2 29 [id number] 09615881 Z86.16 + October 2020 [id number] Kaleigh Mcgovern MD [facility] Internal [facility] [address] [place] [address] 10/22/2023 14:01:13 10/22/2023 14:57:20 Adult health examination 197531003 Z00.00 Colonoscop y- NEVERMammo gram- 3- NL per ptFLU- 3COVID- NEVERPneum ovax- 2022 Asthma 114654347 J45.90 9 under control Genital he rpes simplex 49452607 A60.9 on suppressiv e meds Gastroesop hageal reflux disease 194644413 K21.9 meds help Osteoarthritis 883448199 M19.90 otc Vitamin D deficiency 347 15343 E55.9 labs Overactive urinary bladder 107179877 N32.81 try meds Smoker 79724817 F17.200 advised to quit Fracture of femur 490549 00 S72.90XA using walker Obesity 296726854 E66.9 advised to lose Allergic rhinitis 197916 04 J30.9 meds help [id number] Kaleigh Mcgovern MD [facility] [address] [place] [address] 02/19/2024 14:05:12 02/19/2024 14:45:46 Adult health examination 598581876 Z00.00 Colonoscop y- NEVERMammo gram- 2022- NL per ptFLU- 3COVID- NEVERPneum ovax- 2022 Asthma 436691297 J45.90 9 under control Genital he rpes simplex 57579918 A60.9 on suppressiv e meds Gastroesop hageal reflux disease 378519679 K21.9 meds help Osteoarthritis 458519808 M19.90 otc Vitamin D deficiency 347 52255 E55.9 on Rx Overactive urinary bladder 353627826 N32.81 meds help Smoker 66345893 F17.200 advised to quit Fracture of femur 752631 00 S72.90XA using walker Obesity 162806044 E66.9 advised to lose Allergic rhinitis 361593 04 J30.9 meds help Hyperglycemia 31892292 R 73.9 diet discussed Hyperlipidemia 24093940 E78.5 start meds [id number] Carmen Hayes NP [facility] [address] [place] [address] 03/05/2024 12:15:22 03/05/2024 12:52:03 Dysuria 40514951 R30.0 Acute urin zehra tract infection 678288164 N39.0 Candidiasis of mouth 797 83941 B37.0 Bronchitis 02531078 J40 [id number] Kaleigh Mcgovern MD [facility]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
--- OUTSIDE RECORDS SUMMARY | 2025-01-24 16:33 | XMS_ITS | Clinical Summary ---
Author Organization [facility] Address [address] [place] [address] Care Team Providers Care Igniter Assembler Name Role Phone Mary Jameson Primary Care Provider [phone] Allergies Active Allergy Reactions Criticality Noted Date Comments Iodine Hives,Itching,Rash,S w elling High Reaction: Hives, Itching, Rash, Pruritis, Swelling, Shellfish Containing Products Hives,Itching,Swellin g High Reaction: Hives, Itching, Pruritis, Swelling, Medications tiotropium bromide (SPIRIVA RESPIMAT) 2.5 mcg/actuation inhaler Inhale 2 puffs daily Active cetirizine (ZyrTEC) 10 mg tablet Take 10 mg by mouth daily Active aspirin 81 mg enteric coated tablet Take 81 mg by mouth daily Active acyclovir (ZOVIRAX) 800 mg tablet Take 800 mg by mouth daily Active fluticasone furoate-vilante roL (BREO ELLIPTA) 200-25 mcg/dose diskus inhaler Inhale 1 puff daily Rinse mouth with water after use. Do not swallow. Active omeprazole (PriLOSEC) 20 mg capsule Take 40 mg by mouth daily Active montelukast (SINGULAIR) 10 mg tablet Take 1 tablet (10 mg total) by mouth nightly 30 tablet 11 08/11/2022 Active albuterol HFA (PROVENTIL HFA,VENTOLIN HFA,PROAIR HFA) 90 mcg/actuation inhaler Inhale 2 puffs every 4 (four) hours as needed for wheezing 1 each 08/11/2022 Active guaiFENesin ER (MUCINEX) 600 mg 12 hr tablet Take 2 tablets (1,200 mg total) by mouth 2 (two) times a day 120 tablet 11 08/11/2022 Active cholecalciferol (VITAMIN D-3) 5,000 unit capsule Take 1 capsule (5,000 Units total) by mouth daily 30 capsule 11 08/12/2022 Active guaiFENesin-cod eine (GUAITUSS AC) liquid 100-10 mg/5 mL Take 5 mL by mouth 4 (four) times a day as needed for cough 120 mL 08/11/2022 Active predniSONE (DELTASONE) 10 mg tablet Take 1 tablet (10 mg) by mouth as directed Take 4 daily for 3 days Take 3 daily for 3 days Take 2 daily for 3 days Take 1 daily for 3 days 30 tablet 08/11/2022 Active benzonatate (TESSALON) 200 mg capsuleIndicati ons:Cough Take 1 capsule (200 mg total) by mouth 3 (three) times a day 20 capsule 1 08/11/2022 Active Active Problems Problem Noted Date Diagnosed Date Peripheral neuropathy 08/09/2022 Former smoker 08/09/2022 CAP (community acquired pneumonia) 08/08/2022 Multiple nodules of lung 05/10/2021 Unspecified asthma, uncomplicated 03/23/2020 Bradycardia 12/21/2018 Overview (08/09/2022): nml tsh Hyperlipidemia 12/03/2018 Overview (08/09/2022): intol to crestor Sleep apnea 12/02/2018 Fracture of upper extremity 07/26/2015 Overview (01/29/2018): Impression: right elbow Fracture of patella 07/26/2015 Overview (01/29/2018): Impression: right patella fracture/ with open wound with sutures Open wound of ankle with complication 07/26/2015 Overview (01/29/2018): Impression: Open fracture right ankle with wounds Sprain 07/26/2015 Overview (01/29/2018): Impression: left ankle. Presence of cardiac pacemaker 07/26/2015 Overview (01/29/2018): Impression: History of bradycardia Previous section 07/26/2015 Depression 12/14/2008 Surgical History Surgery Date Site/Laterality Comments ID LAPAROSCOPY SURG CHOLECYSTECTOMY Cholecystectomy Laparoscopic - (Added by TW Conv) ID LIG/TRNSXJ FLP TUBE ABDL/ VAG APPR UNI/BI Tubal Ligation - (Added by TW Conv) ID TONSILLECTOMY & ADENOIDEC OBDULIO <AGE 12 Tonsillectomy With Adenoidectomy - (Added by TW Conv) ANKLE SURGERY Ankle Surgery - (Added by TW Conv) ID OPTX PATLLR FX W/INT FIXJ/PATLLC&SOFT TISS RPR Treatment Of Knee Fracture Patellar, Open - (Added by TW Conv) CARDIAC PACEMAKER PLACEMENT Left Social History Tobacco Use Types Packs/Day Years Used Date Smoking Tobacco: Never Smokeless Tobacco: Never Tobacco Cessation:Counseling Given: Not Answered AUDIT-C Answer Date Recorded Q1: How often do you have a drink containing alc ohol? Monthly or less 08/08/2022 Q2: How many drinks containi ng alcohol do you have on a typical day when you are drinking? 1 or 2 08/08/2022 Q3: How often do you have si x or more drinks on one occasion? 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 Gender Identity Not on file Sexual Orientation Not on file Obstetrics History Last Filed Vital Signs Vital Sign Reading Time Taken Comments Blood Pressure 105/72 08/11/2022 7:52 AM CDT Pulse 60 08/11/2022 7:52 AM CDT Temperature 36.5 C (97.7 F) 08/11/2022 7:52 AM CDT Respiratory Rate 18 08/11/2022 7:52 AM CDT Oxygen Saturation 94% 08/11/2022 7:52 AM CDT Inhaled Oxygen Concentration - - Weight 104.3 kg (230 lb) 08/08/2022 10:30 PM CDT Height 167.6 cm (5' 6 ) 08/08/2022 11:34 AM CDT Body Mass Index 37.12 08/08/2022 11:34 AM CDT Plan of Treatment Health Maintenance Due Date Last Done Comments Breast Cancer Screening-Mammogram 1975 Cervical Cancer Screening 1975 Colon Cancer Screening-Colonoscopy 1975 Depression Screening 1975 Hepatitis C Screening 1975 DTaP/Tdap/Td Vaccine (1 - Tdap) 1986 Hepatitis B Screening 1993 Regular Well Visit/Exam 18-64 1993 Pneumococcal vaccine <65 (1 of 2 - PCV) 1994 Influenza Vaccine (Season Ended) 2025 09/28/2021, 08/12/2018, 07/17/2018, Additional history exists Insurance [facility] MEDICARE [facility] AETNA MEDICARE [facility]ICARE Address: [facility] [id number] [place] [phone] [facility] MEDICARE [facility] Address: [facility] [id number] [place] [phone] Advance Directives For more information, please contact: [phone] Documents on File Type Date Recorded Patient Clean Out Driller Helper Expl anation ADVANCE DIRECTIVE 02/19/2013 12:00 AM POWER OF TELEGRAPHER AGENT FINANCIAL/MEDICAL * Full Code (Latest Code Status on File) Date Activated Date Inactivated Comments 08/08/2022 10:30 PM 08/11/2022 7:14 PM Care Teams Igniter Assembler Relationship Specialty Start Date End Date Mary Jameson PA [address] [place] [address] PCP - General Physician Tax Professional 08/08/22
--- OUTSIDE RECORDS SUMMARY | 2025-01-24 16:33 | XMS_ITS | Referral Summary ---
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 Gender Identity Not on file Sexual Orientation Not on file Last Filed Vital Signs Vital Sign Reading [...] 08/08/2022 11:34 AM CDT Plan of Treatment Not on file Insurance [facility] AETNA MEDICARE GOLD AET MEDICARE GOLD AETNA MEDICARE GOLD Advance Directives For more information, please contact: [phone] Documents on File Type Date Recorded Patient Disk Sharpener Expl anation ADVANCE DIRECTIVE 02/19/2013 12:00 AM POWER OF SENIOR TECHNICAL PROJECT MANAGER FINANCIAL/MEDICAL * Full Code (Latest Code Status on File) Date Activated Date Inactivated Comments 08/08/2022 10:30 PM 08/11/2022 7:14 PM Care Teams Strip Cleaner Relationship Specialty Start Date End Date Mary Jameson PA [address] [place] [address] PCP - General Physician Bath Tester 08/08/22
--- OUTSIDE RECORDS SUMMARY | 2025-01-24 16:33 | XMS_ITS | CONTINUITY OF CARE DOCUMENT ---
Author Name yaquelin jamison Address Unknown Organization [facility] Address [address] [place] [address] Phone [phone] Care Team Providers Care Occupational Hygienist Name Role Phone Gabriel TALBOT, Jeffrey Unavailable Carmen Suarez Unavailable Carmen Suarez Unavailable [phone] PROBLEMS Condition Status Date Provider Notes FATIGUE;NEG ECHO 2008 active - Jeffrey garvey MD DEPRESSION active Jeffrey Rios MD Bradycardia sinus completed - Jeffrey Rios MD DUAL [facility] PCM - [facility]:IN AAI MODE DUE TO DIAGHRAM STIM completed - Latonia Monreal MD PALPITATIONS;PACER MALFUNCTION, WILL HAINES completed - Jeffrey Rios MD OBESITY; active Jeffrey Rios MD Leg pain, bilateral completed - Jeffrey Rios MD Tobacco use, quit active Jeffrey sawyer to screen Insertion of pulse generator pacer;biotronic active Jeffrey Rios MD new a v leads, for harjeet Sleep apnea active Jeffrey Rios MD Hyperlipidemia;with high crp active Jeffrey Rios MD intol to cresto r covid sep 2020;pos igg active Jeffrey Rios MD ASTHMA;has lung md active Jeffrey Rios MD Bradycardia active eJffrey Rios MD nml tsh Screening active Jeffrey Rios MD S/P dc pm gen change - Biotronik - New atr /rv leads completed - [facility] AAI MODE DUE TO DIAGHRAM STIM SVT; SEEN ON PACER CHECK, WILL HOLTER completed - Jeffrey Rios MD HYPOTHYROIDISM active - Jeffrey Rios MD ENCOUNTERS Date Type Provider Location Encounter Diag nosis - In-person encounter Office Visit Jeffrey Rios MD [facility] Hyperlipidemia;with high crpcovid ;sep 2020;pos iggASTHMA;has lung - In-person encounter Office Visit Jeffrey Rios MD [facility] covid ;sep 2020;pos iggASTHMA;has lung - In-person encounter Office Visit Jeffrey Rios MD [facility] Sleep apneaBradycardia - In-person encounter Office Visit Jeffrey Rios MD [facility] Bradycardia sinusSVT; SEEN ON PACER CHECK, WILL HOLTEROBESITY;S/P dc pm gen change - Biotronik - New atr /rv leadsLeg pain, bilateralTobacco use, quitScreeningInsertion of pulse generator pacer;biotronicSleep apnea - In-person encounter Office Visit Latonia Monreal MD [facility] - In-person encounter Office Visit Latonia Monreal MD [facility] Tobacco use, quit - In-person encounter Office Visit Latonia Monreal MD [facility] - In-person encounter Office Visit Latonia Monreal MD [facility] - In-person encounter Office Visit Latonia Monreal MD [facility] - In-person encounter Office Visit Latonia Monreal MD [facility] - In-person encounter Office Visit Latonia Monreal MD [facility] - In-person encounter Office Visit Latonia Monreal MD [facility] - In-person encounter Office Visit Jeffrey Rodriguez [facility] PALPITATIONS;PACER MALFUNCTION, WILL WUOBESITY; - In-person encounter Office Visit [facility] - In-person encounter Office Visit Jeffrey Rios MD [facility] SVT; SEEN ON PACER CHECK, WILL HOLTEROBESITY; - In-person encounter Office Visit Jeffrey Rios MD [facility] FATIGUE;NEG ECHO 2009Bradycardia sinusDUAL CHAMB PCM - [facility]:IN AAI MODE DUE TO DIAGHRAM STIMSVT; SEEN ON PACER CHECK, WILL HOLTER - In-person encounter Office Visit Jeffrey Hu Office HYPOTHYROIDISMDUAL [facility] PCM - [facility]:IN AAI MODE DUE TO DIAGHRAM STIM - In-person encounter Office Visit Jeffrey Hu Office FATIGUE;NEG ECHO 2009DEPRESSIONBradycardia sinusDUAL CHAMB PCM - [facility]:IN AAI MODE DUE TO DIAGHRAM STIM VITAL SIGNS Date Observation Value Provider Body Mass Index (Ratio) 44.06 kg/m2 Shlomo Rios MD blood pressure, cuff size regular Cy yang Zapien blood pressure, diastolic 70 mm[Hg] Misael Zapien blood pressure, systolic 118 mm[Hg] Emelia Zapien pulse rate 97 /min Quyen jason oxygen saturation, oximetry 98 % Quyen Zapien respiratory rate E&M 16 /min Quyen Zapien weight E&M 273 [lb_av] Quyen jason height E&M 66 [in_i] Quyen Moyerbel l Body Mass Index (Ratio) 36.31 kg/m2 Shlomo Rios MD blood pressure, diastolic 72 mm[Hg] To nsha Roque blood pressure, systolic 104 mm[Hg] Ton [facility] Roque oxygen saturation, oximetry 98 % Tonsha Roque respiratory rate E&M 16 /min Tonsha Roque pulse rate 72 /min Tonsha Roque weight E&M 225 [lb_av] Tonsha Roque height E&M 66 [in_i] Tons Roque temperature site temporal Annemarie Tank sley temperature E&M 96.8 [degF] Annemarie Tanks joo Body Mass Index (Ratio) 36.63 kg/m2 Shlomo Rios MD blood pressure, diastolic 60 mm[Hg] Ki lleen Eduardo blood pressure, systolic 100 mm[Hg] Brooke sanders [place] oxygen saturation, oximetry 96 % Sanford Eduardo respiratory rate E&M 16 /min Patrica Eduardo pulse rate 75 /min Patrica Eduardo weight E&M 227 [lb_av] Patrica Eduardo height E&M 66 [in_i] Sanford Eduardo Body Mass Index (Ratio) 36.15 kg/m2 Shlomo Rios MD blood pressure, diastolic 70 mm[Hg] Luis Grijalva blood pressure, systolic 108 mm[Hg] Tonya Grijalva oxygen saturation, oximetry 97 % Montserrat Grijalva pulse rate 81 /min Montserrat Persaud blood pressure, resting No Heriberto Grijalva weight E&M 224 [lb_av] Montserrat Persaud height E&M 66 [in_i] Montserrat Persaud Body Mass Index (Ratio) 38.57 kg/m2 Cooper Dodson blood pressure, cuff size large Ke rri Gruenenfelder blood pressure, diastolic 80 mm[Hg] Ke rri Gruenenfelder blood pressure, systolic 122 mm[Hg] Ker ri Gruenenfelder oxygen saturation, oximetry 98 % Chayito Gruenenfelder respiratory rate E&M 18 /min Chayito G ruenenfelder pulse rate 73 /min Chayito Gruenenfe lder weight E&M 239 [lb_av] Chayito Gruenenfe lder height E&M 66 [in_i] Chayito Gruenenfe lder Body Mass Index (Ratio) 41.48 kg/m2 Will jami W Giesing blood pressure, cuff size large Ke rri Gruenenfelder blood pressure, diastolic 90 mm[Hg] Ke rri Gruenenfelder blood pressure, systolic 120 mm[Hg] Ker ri Gruenenfelder oxygen saturation, oximetry 96 % Chayito Gruenenfelder respiratory rate E&M 20 /min Chayito G ruenenfelder pulse rate 81 /min Chayito Gruenenfe lder weight E&M 257 [lb_av] Chayito Gruenenfe lder height E&M 66 [in_i] Chayito Gruenenfe lder Body Mass Index (Ratio) 40.99 kg/m2 Tera Monreal MD blood pressure, diastolic 70 mm[Hg] Ki llelvi Eduardo blood pressure, systolic 100 mm[Hg] Brooke sanders Eduardo respiratory rate E&M 16 /min Sanford Eduardo oxygen saturation, oximetry 98 % Patrica Eduardo pulse rate 81 /min Sanford Eduardo weight E&M 254 [lb_av] Patrica Eduardo height E&M 66 [in_i] Patrica Eduardo Body Mass Index (Ratio) 43.09 kg/m2 Tera Monreal MD oxygen saturation, oximetry 98 % Chayito Lucía respiratory rate E&M 18 /min Chayito murdock pulse rate 60 /min Chayito Subhash ruibner weight E&M 267 [lb_av] Chayito Subhash rubiner blood pressure, cuff size large Ashvin angel Lucía blood pressure, diastolic, standing 72 mm [Hg] Chayito Lucía blood pressure, systolic, standing 110 mm [Hg] Chayito Lucía height E&M 66 [in_i] Chayito Subhash [facility] blood pressure, diastolic 68 mm[Hg] Nj kaylie Davis blood pressure, systolic 108 mm[Hg] Casandra welsh Davis pulse rate 64 /min Laurie Davis oxygen saturation, oximetry 96 % Laurie Davis respiratory rate E&M 15 /min Laurie Davis Body Mass Index (Ratio) 41.31 kg/m2 Kym ledesma Davis weight E&M 256 [lb_av] Laurie Susan blood pressure, diastolic 70 mm[Hg] Raudel Gomez blood pressure, systolic 104 mm[Hg] Jovanna Gomez pulse rate 81 /min Deven alebrt oxygen saturation, oximetry 97 % Deven Gomez respiratory rate E&M 16 /min Chema Gomez Body Mass Index (Ratio) 41.15 kg/m2 Constanza Gomez weight E&M 255 [lb_av] Deven albert blood pressure, diastolic 70 mm[Hg] Me kaylie Triplett blood pressure, systolic 111 mm[Hg] Casandra Triplett pulse rate 79 /min Laurie Triplett oxygen saturation, oximetry 98 % Laurie Triplett respiratory rate E&M 16 /min Laurie Triplett Body Mass Index (Ratio) 40.73 kg/m2 Kym ledesma Uziel weight E&M 252.4 [lb_av] Laurie Uziel blood pressure, diastolic 74 mm[Hg] Me lott Davis blood pressure, systolic 110 mm[Hg] Casandra welsh Davis pulse rate 80 /min Laurie [facility] oxygen saturation, oximetry 96 % Laurie [facility] respiratory rate E&M 16 /min [facility] (Ratio) 39.70 kg/m2 Kym [facility] weight E&M 246 [lb_av] Laurie [facility] height E&M 66 [in_i] [facility] blood pressure, diastolic, left arm 70 mm [Hg] Tashi [facility] blood pressure, systolic, left arm 105 mm [Hg] [facility] blood pressure, diastolic, right arm 73 m m[Hg] Tashi [facility] blood pressure, systolic, right arm 104 m m[Hg] Tashi [place] blood pressure, diastolic 73 mm[Hg] Althea simmons [place] blood pressure, systolic 104 mm[Hg] Volodymyr landry [facility] pulse rate 62 /min Tashi [facility] oxygen saturation, oximetry 99 % Tashi [facility] respiratory rate E&M 16 /min Tashi [facility] weight E&M 203 [lb_av] Tashi [facility] blood pressure, diastolic, left arm 78 mm [Hg] Malathi York blood pressure, systolic, left arm 107 mm [Hg] Malathi York blood pressure, diastolic, right arm 72 m m[Hg] Malathi York blood pressure, systolic, right arm 110 m m[Hg] Malathi York oxygen saturation, oximetry 99 % Malathi York blood pressure, diastolic 78 mm[Hg] Pa marc York blood pressure, systolic 107 mm[Hg] Pat sy York pulse rate 67 /min Malathi York respiratory rate E&M 17 /min Malathi Y ork weight E&M 205 [lb_av] Malathi York blood pressure, diastolic 70 mm[Hg] Da byron Colindres blood pressure, systolic 96 mm[Hg] Carlton Colindres pulse rate 96 /min Bibi Colindres oxygen saturation, oximetry 98 % Bibi Colindres respiratory rate E&M 16 /min Torres Colindres weight E&M 201.03 [lb_av] Bibi james blood pressure, diastolic 70 mm[Hg] Raudel Gomez blood pressure, systolic 100 mm[Hg] Jovanna Gomez pulse rate 87 /min Deven albert oxygen saturation, oximetry 100 % Deven Gomez respiratory rate E&M 20 /min Chema Gomez weight E&M 208.8 [lb_av] Deven hernandez blood pressure, diastolic 62 mm[Hg] Raudel Gomez blood pressure, systolic 104 mm[Hg] Jovanna Gomez pulse rate 73 /min Deven albert oxygen saturation, oximetry 98 % Deven Gomez respiratory rate E&M 16 /min Chema Gomez weight E&M 211.0 [lb_av] Deven hernandez ALLERGIES Allergy Name Onset Date Reaction Criticality Status CONTRAVE Low Criticality active CRESTOR Low Criticality active ANTIHISTAMINES Low Criticality activ e SHELLFISH Low Criticality active RESULTS Date Observation Value Provider Reference Range Interpretation Location c-reactive protein, quantitative, serum 12.32 mg/L [facility] 0.00-3.00 High lipoprotein, beta, serum, point, quantitative, calculated 102 mg/dL [facility] 0-99 High HDL cholesterol, serum 41 mg/dL [facility] >39 triglyceride, serum, random 187 mg/dL [facility] 0-149 High cholesterol, serum 175 mg/dL [facility] [id number] 4212/06/ 05 lipoprotein, beta, serum, point, quantitative, calculated 102 mg/dL [facility] 0-99 High very low density lipoproteins 21 mg/dL [facility] 5-40 HDL cholesterol, serum 57 mg/dL [facility] >39 triglyceride, serum, random 107 mg/dL [facility] 0-149 cholesterol, serum 180 mg/dL [facility] [id number] 1571/02/ 14 c-reactive protein, quantitative, serum 6.81 mg/L [facility] 0.00-3.00 High free thyroxine index 1.8 [facility] 1.2-4.9 triiodothyronine resin uptake 28 % [facility] 24-39 thyroxine, serum, total 6.4 ug/dL [facility] 4.5-12.0 thyroid stimulating hormone, serum 2.120 u[IU]/mL [facility] 0.450-4.500 lipoprotein, beta, serum, point, quantitative, calculated 86 mg/dL [facility] 0-99 very low density lipoproteins 35 mg/dL [facility] 5-40 HDL cholesterol, serum 40 mg/dL [facility] >39 triglyceride, serum, random 175 mg/dL [facility] 0-149 High cholesterol, serum 161 mg/dL [facility] [id number] 1384/03/ 22 troponin I <0.10 Latanya Bernstein HISTORY OF MEDICATION USE Medication Status Instructions Dates Provider Indications Com ments PRAVACHOL 20 MG ORAL TABLET active ONE TAB. DAILY for high chol Jeffrey Rios MD PRILOSEC OTC 20 MG ORAL TABLET DELAYED RELEASE active take 1 tab daily Quyen Zapien ZYRTEC ALLERGY 10 MG ORAL CAPSULE active take 1 tab daily Quyen Zapien SPIRIVA HANDIHALER 18 MCG INHALATION CAPSULE active inhale 2 puffs twice a day Quyen Zapien BREO ELLIPTA 200-25 MCG/INH INHALATION AEROSOL POWDER BREATH ACTIVATED active inhale as needed Quyen Zapien SINGULAIR 10 MG ORAL TABLET active take 1 tab dialy Quyen Zapien TOPAMAX 100 MG ORAL TABLET completed one tab by mouth daily - Quyen Zapien ADIPEX-P 37.5 MG ORAL TABLET completed one tab by mouth daily - Quyen Zapien FLOVENT HFA 110 MCG/ACT INHALATION INHALER active INL 2 PFS PO BID Jeffrey Rios MD #[id number], 30 days supply, Prescribed by KENNY YEAGER, Filled 02/28/2020 VENTOLIN HFA 108 (90 BASE) MCG/ACT INHALATION AEROSOL SOLUTION completed 2 puffs every 4-6hours - Quyen Zapien PRAVACHOL 20 MG ORAL TABLET completed ONE TAB. DAILY - Quyen Zapien CRESTOR 10 MG ORAL TABLET completed ONE TAB. DAILY - Patrick Schroeder RN BUPROPION HCL 100 MG ORAL TABLET completed one twice a day - Jeffrey Rios MD NALTREXONE HCL 50 MG ORAL TABLET completed 1/2 tab by mouth twice a day - Jeffrey Rios MD PROAIR HFA 108 (90 BASE) MCG/ACT INHALATION AEROSOL SOLUTION completed 2 puffs every 4-6 hours - Jeffrey Rios MD TEGRETOL 200 MG ORAL TABLET completed one tablet three times daily - Chayito Lucía MOBIC 15 MG ORAL TABLET completed take one pill twice a day - Patrica Eduardo CITALOPRAM HYDROBROMIDE 40 MG ORAL TABLET completed once daily - Jeffrey Rios MD SOCIAL HISTORY Date Observation Value Provider social history E&M Marital Statu s: Single L ayush alone E thnicity: C hildren: 5 children S moking History: Smoking History: P atient is a former smoker. Jeffrey Rios MD social history reviewed E&M revi ewed - no changes required Jeffrey Rios MD caffeine use, averag e drinks per day yes Quyen Curry smoking, year quit 2017 Quyen [place] marmolejo number of years as a smoker 10 a Quyen Curry smoking history, tot al pack/day 1/2 ppd Quyen Curry cigarette use yes Quyen Moyertomas marcus smoking status Former smoker Quyen João iglesias quit smoking, stage quit Jeffrey andre MD social history E&M Marital Statu s: Single L ayush alone E thnicity: C hildren: 5 children S moking History: Smoking History: P atient is a former smoker. Jeffrey Rios MD social history reviewed E&M revi ewed - no changes required Jeffrey Rios MD caffeine use, averag e drinks per day yes Tonsha Roque smoking, year quit 2018 Tonsha Mo ss number of years as a smoker 10 a Tonsha Roque smoking history, tot al pack/day 1/2 ppd Tonsha Roque cigarette use yes Tonsha Roque smoking status Former smoker Tonsha Roque social history E&M Marital Statu s: Single L ayush alone E thnicity: C hildren: 5 children S moking History: Smoking History: P atient is a former smoker. Jeffrey Rios MD social history reviewed E&M revi ewed - no changes required Jeffrey Rios MD number of grandchildren Jeffrey Rios MD Patrica Eduardo alcohol use, average drinks per day none Patrica Eduardo caffeine use, averag e drinks per day yes Sanford Eduardo smoking, year quit 2017 Patrica Mims ngram number of years as a smoker 10 a Patrica Eduardo smoking history, tot al pack/day 1/2 ppd Patrica Eduardo cigarette use yes Patrica Eduardo smoking status Former smoker Patrica [facility] alcohol use, average drinks per day none Montserrat Pickens-Hung caffeine use, averag e drinks per day yes Montserrat Pickens-Hung smoking, year quit 2017 Montserrat Abe inson-Hung number of years as a smoker 10 a Montserrat Pickens-Hung smoking history, tot al pack/day 1/2 ppd Montserrat Pickens-Hung cigarette use yes Montserrat Pickens -Hung smoking status Former smoker Montserrat Fishins on-Hung social history reviewed E&M revi ewed - no changes required Montserrat Pickens-Hung social history reviewed E&M revi ewed - no changes required Andry Dodson social history E&M Marital Statu s: Single L ayush alone E thnicity: C hildren: 5 children S moking History: Smoking History: P nataliya is a former smoker. Andry Dodson number of years as a smoker 10 a Chayito Lucía smoking history, tot al pack/day 1/2 ppd Chayito Jiller smoking, year quit 2018 Chayito Blaisenahomi levine cigarette use yes Chayito Mayte elder alcohol use, average drinks per day none Chayito Jiller caffeine use, averag e drinks per day yes Chayito Lucía smoking status Former smoker Chayito Welshisaac chun smoking/tobacco cess ation, patient education and counseling yes Alexander Escalante Tatirebecca smoking status Current every day smoker Boris Napoles social history E&M Marital Statu s: Single L ayush alone E thnicity: C hildren: 5 children S moking History: Smoking History: P nataliya currently smokes every day. P atkeyla has been counseled to quit. Alexander Escalante Yesika social history reviewed E&M revi ewed - no changes required Alexander Escalante Tatirebecca alcohol use, average drinks per day none Chayito Welshkendal caffeine use, averag e drinks per day yes Chayito Welshkendal social history E&M Marital Statu s: Single L ayush alone E thnicity: C hildren: 5 children S moking History: Smoking History: P atient has never smoked. Latonia Monreal MD social history reviewed E&M revi ewed - no changes required Latonia Monreal MD alcohol use, average drinks per day none [facility] caffeine use, averag e drinks per day yes [facility] smoking status Never smoker [facility] social history E&M Marital Statu s: Single L ayush alone E thnicity: C hildren: 5 children S moking History: S moking History: P atient has never smoked. Wilma Osorio social history reviewed E&M revi ewed - no changes required Wilma Osorio alcohol use, average drinks per day none Chayitomiguel Castrejon caffeine use, averag e drinks per day yes Chayito Lucía smoking status Never smoker Chayito Norma salazar social history reviewed E&M revi ewed - no changes required Latonia Monreal MD alcohol use, average drinks per day none Laurie Davis caffeine use, averag e drinks per day yes Laurie Davis smoking status Never smoker Laurie cazares social history E&M Marital Statu s: Single L ayush alone E thnicity: C hildren: 5 children Smoking History: Patient has never smoked. Latonia Monreal MD alcohol use, average drinks per day none Deven Gomez caffeine use, averag e drinks per day yes Deven Gomez smoking status Never smoker Deven Calix social history E&M Marital Statu s: Single L ayush alone E thnicity: C hildren: 5 children Smoking History: P atient has never smoked. Jaems Blancas social history reviewed E&M revi ewed - no changes required Latonia Monreal MD alcohol use, average drinks per day none Laurie Triplett caffeine use, averag e drinks per day yes Laurie smoking status Never smoker Laurie Triplett number of grandchildren Latonia Monreal MD social history E&M Marital Statu s: Single L ayush alone E thnicity: C hildren: 5 children Smoking History: P atkeyla has never smoked. Latonia Monreal MD social history reviewed E&M revi ewed - no changes required Latonia Monreal MD alcohol use, average drinks per day none Laurie Davis caffeine use, averag e drinks per day yes Laurie Davis smoking status Never smoker Laurie cazares smoking status never smoker Constanza HarrisonRodney social history reviewed E&M reviewed Jeffrey Rios MD social history reviewed E&M reviewed Jeffrey Rios MD social history reviewed E&M reviewed Jeffrey Rios MD social history reviewed E&M reviewed Jeffrey Rios MD number of children 5 children Jeffrey arevalo MD social history E&M Marital Statu s: Single L ayush alone E thnicity: Milton garcia: 5 children Jeffrey Rios MD social history reviewed E&M reviewed Jeffrey Rios MD caffeine use, averag e drinks per day yes [facility] alcohol use, average drinks per day none [facility] smoking status Non-smoker [facility] MENTAL STATUS Date Observation Value Provider assessment of judgme nt and insight E&M Alert and oriented to time, place and person. Mood and affect are normal. Jeffrey Rios MD assessment of judgme nt and insight E&M Alert and oriented to time, place and person. Mood and affect are normal. Jeffrey Rios MD assessment of judgme nt and insight E&M Alert and oriented to time, place and person. Mood and affect are normal. Jeffrey Rios MD assessment of judgme nt and insight E&M Alert and oriented to time, place and person. Mood and affect are normal. Jeffrey Rios MD assessment of judgme nt and insight E&M Alert and oriented to time, place and person. Mood and affect are normal. Jeffrey Rios MD FAMILY HISTORY Family Member Condition Full Sister Family History of Co ronary Artery Disease: INSURANCE PROVIDERS Payer name Policy type / Coverage type [place] [employer] party ID [facility] Other [facility] Other [facility] Other [id number] (O C-SNP) Commercial insurance company [id number] [place] Medicare [employer] MEDICARE GOLD ADVANTAGE [facility] Medicare [id number] [facility] Medicaid 0 [id number] ADVANCE DIRECTIVES Name Date DISCUSSED - NO DECISION MADE TREATMENT PLAN Date Name Performer Cardiology follow up :did not like qsymai d id not daren aviles, does not want surgery or other rx Jeffrey Rios MD Cardiology follow up Jeffrey ashley MD Cardiology follow up Jeffrey ashley MD Cardiology follow up : T he patient is using CPAP on a regular basis. The patient has been benefiting from therapy and should continue use. Jeffrey Rios MD Cardiology follow up Jeffrey ashley MD Cardiology follow up : , neg stres per pt years ago n ml pft and echo and neg rpr, neg brain ct Jeffrey Rios MD Cardiology follow up : T he following medications were removed from the medication list: Pravachol 20 Mg Oral Tablet (Pravastatin sodium) ..... One tab. daily C HOL: 180 (03/24/2020) HDL: 57 (03/24/2020) Jeffrey Rios MD Cardiology follow up : r a at 60, rv not pacing Jeffrey Rios MD Cardiology Jeffrey Rios MD Cardiology: n ml tsh, neg stres per pt years ago n ml pft and echo and neg rpr, neg brain ct Jeffrey Rios MD Cardiology: T he patient is using CPAP on a regular basis. The patient has been benefiting from therapy and should continue use. Jeffrey Rios MD Cardiology: H er updated medication list for this problem includes: Pravachol 20 Mg Oral Tablet (Pravastatin sodium) ..... One tab. daily C HOL: 161 (12/03/2018) HDL: 40 (12/03/2018) Jeffrey Rios MD Cardiology Jeffrey Rios MD Cardiology:did not l liek contrave, does not want surgery Jeffrey Rios MD Cardiology: r a at 60, rv not pacing Jeffrey Rios MD Cardiology Jeffrey Rios MD Cardiology Jeffrey Rios MD Cardiology:about to get rx Elisabet Rios MD Cardiology:CHOL: 161 (12/03/2018) HDL: 40 (12/03/2018) i notol to crstor, high crp Jeffrey Rios MD Cardiology:nml tsh, neg stres per pt years ago n ml pft and echo and neg rpr, neg brain ct Jeffrey Rios MD Cardiology: r a at 60, rv not pacing Jeffrey Rios MD Cardiology:sx will haines Jeffrey valadez MD Cardiology:not inteeersd wt loss suregy Jeffrey Rios MD Cardiology:ra at 60, rv not paci ng Jeffrey Rios MD Cardiology:nml pft and echo and neg rpr, neg brain ct Jeffrey Rios MD Electrophysiology Fo llow up :PFT report on 03/19/2018 was normal with DLCO 92%. E cho 05/30/17 revealed EF 60%. Underwent echo today in the office, which was normal. Andry West Electrophysiology Fo llow up faxed 04/02/18/kk:The Patient was reencouraged to stop smoking. W ill check PFTs. Alexander Napoles Electrophysiology Follow up faxe d 04/02/18/kk Alexander Napoles Electrophysiology Follow up faxe d 04/02/18/kk Alexander Napoles Electrophysiology:EKG shows NSR Latonia Monreal MD Electrophysiology Latonia mansfield MD Electrophysiology:Fr om a cardiac standpoint, she may be cleared to have surgery done. Latonia Monreal MD Cardiology Follow up Wilma Osorio Cardiology Follow up:EKG shows s inus rhythm. Wilma Osorio Cardiology faxed 06/25/16:No recen t episodes. James Blancas EP:S/P gen change. James hall 2 month follow-up: O rders: H olter Monitor 24 Hr (CPT-06734) Jeffrey Rios MD 2 month follow-up: O rders: H olter Monitor 24 Hr (CPT-15321) Jeffrey Rios MD 2 month follow-up: O rders: H olter Monitor 24 Hr (CPT-67310) Jeffrey Rios MD 2 month follow-up Jeffrey Rios MD 2 month follow-up: O rders: H olter Monitor 24 Hr (CPT-24803) Jeffrey Rios f/u Jeffrey Rios f/u: O rders: T HYROID PANEL WITH TSH, 3RD GENERATION (7444) C omplete Echo (CPT-49055) Jeffrey Rios f/u: O rders: C omplete Echo (CPT-18479) E KG (CPT-99604) Jeffrey Rios f/u: O rders: C omplete Echo (CPT-53123) E KG (CPT-34743) Jeffrey Rios f/u: O rders: C omplete Echo (CPT-76691) E KG (CPT-37424) Jfefrey Rios f/u Jeffrey Rios f/u Jeffrey Rios svt? on pacer, no sx Jeffrey Nettles dion TALBOT svt? on pacer, no sx : B P today: 100/70 Prior BP: 104/62 (12/14/2008) H olter Monitor: The patient's Holter monitoring period was 23 hours and 8 minutes. There were a total of [id number] QRS complexes detected. The average heart rate was 91 BPM with a maximum heart rate of 164 BPM at 16:10:08 and a minimum heart rate of 59 BPM at 03:23:20. Tachycardia (heart rate > 120 BPM) was noted 5.8% of the time. There were 79 Tachycardia minutes with the longest episode occurred at 16:10:48 for 5 minutes. Bradycardia (heart rate < 50 BPM) was noted 0% of the time. No Pauses exceeding 2.5 seconds were noted. 14 Ventricular ectopics, which represented < 0.1% of the total beat count, were noted. Ventricular ectopics were observed as 14 isolated beat(s) and as 0 couplet(s). No runs were noted. None of the ventricular beats occurred in 0 bigeminal cycles. None of the ventricular beats occured in 0 trigeminal cycles. 1 Supraventricular ectopics, which represented < 0.1% of the total beat count, were noted. 0 A-Fib episodes, with a total time of 0 hr 0 min 0 sec, representing 0.0 % of the total monitoring time, were noted. Channel 1 was the Primary channel during the analysis. (01/10/2009) H olter Monitor Comments: Electronic atrial pacemaker. and NSR. The average heart rate was 91 BPM with a maximum heart rate of 164 BPM at 16:10:08 and a minimum heart rate of 59 BPM at 03:23:20. Rare PVC's and APC's were noted. No diary was returned with the monitor. (01/10/2009) E chocardiogram: LV chamber size and wall motion is normal. LV EF 60%. There is a linear artifact in RV suggestive of pacer lead, or ICD lead. RSVP is estimated to be 21mmHg and is wnl. 1+ mild TR. SLHV (01/05/2009) Jeffrey Rios MD svt? on pacer, no sx : B P today: 100/70 Prior BP: 104/62 (12/14/2008) H olter Monitor: The patient's Holter monitoring period was 23 hours and 8 minutes. There were a total of [id number] QRS complexes detected. The average heart rate was 91 BPM with a maximum heart rate of 164 BPM at 16:10:08 and a minimum heart rate of 59 BPM at 03:23:20. Tachycardia (heart rate > 120 BPM) was noted 5.8% of the time. There were 79 Tachycardia minutes with the longest episode occurred at 16:10:48 for 5 minutes. Bradycardia (heart rate < 50 BPM) was noted 0% of the time. No Pauses exceeding 2.5 seconds were noted. 14 Ventricular ectopics, which represented < 0.1% of the total beat count, were noted. Ventricular ectopics were observed as 14 isolated beat(s) and as 0 couplet(s). No runs were noted. None of the ventricular beats occurred in 0 bigeminal cycles. None of the ventricular beats occured in 0 trigeminal cycles. 1 Supraventricular ectopics, which represented < 0.1% of the total beat count, were noted. 0 A-Fib episodes, with a total time of 0 hr 0 min 0 sec, representing 0.0 % of the total monitoring time, were noted. Channel 1 was the Primary channel during the analysis. (01/10/2009) H olter Monitor Comments: Electronic atrial pacemaker. and NSR. The average heart rate was 91 BPM with a maximum heart rate of 164 BPM at 16:10:08 and a minimum heart rate of 59 BPM at 03:23:20. Rare PVC's and APC's were noted. No diary was returned with the monitor. (01/10/2009) E chocardiogram: LV chamber size and wall motion is normal. LV EF 60%. There is a linear artifact in RV suggestive of pacer lead, or ICD lead. RSVP is estimated to be 21mmHg and is wnl. 1+ mild TR. SLHV (01/05/2009) Jeffrey Rios MD svt? on pacer, no sx Jeffrey ashley MD svt? on pacer, no sx Jeffrey ashley MD fatigue, will w/u, c heck pacer functionj: O rders: X -Ray, Chest, PA & Lateral (CPT-95976) Jeffrey Rios MD fatigue, will w/u, c heck pacer functionj: O rders: X -Ray, Chest, PA & Lateral (CPT-53851) BP today: 104/62 Prior BP: / () Jeffrey Rios MD fatigue, will w/u, check pacer f unctionj Jeffrey Rios MD fatigue, will w/u, check pacer f unctionj Jeffrey Riso MD fatigue, will w/u, c heck pacer functionj: O rders: E KG (CPT-01991) C omplete Echo (CPT-63484) Jeffrey Rios MD Date Name CT, Coronary Calcium Score Complete Echo EKG CXR- PA/Lat COVID19 High Affinit y Antibodies (LC) C-REACTIVE PROTEIN LIPID PANEL CT, Coronary Calcium Score LIPID PANEL Sleep Study Home THYROID PANEL WITH T SH, 3RD GENERATION C-REACTIVE PROTEIN LIPID PANEL CT, Coronary Calcium Score DLCO - 27549 FRC - 40057 FVC - 89998 Complete Echo Complete Echo Holter Monitor 24 Hr X-Ray, Chest, PA & L ateral Holter Monitor 24 Hr Complete Echo X-Ray, Chest, PA & L ateral HISTORY OF PROCEDURES Procedure Date Procedure Name Provider Procedure Notes S tatus ICM Interrogation, Remote (Prof) Jeffrey Rios MD INTERROGATION EVAL REMOTE </30 D CV MNTR SYS completed ICM Interrogation, Remote (Tech) Jeffrey Rios MD INTERROGATION EVAL REMOTE </30 D TECH REVIEW completed ICM Interrogation, Remote (Prof) Jeffrey Rios MD INTERROGATION EVAL REMOTE </30 D CV MNTR SYS completed Pacemaker Interrogation, Remote (Tech) Jeffrey Rios MD INTERROGATION REMOTE </90 D MANAGER OF DIGITAL REVIEW completed Pacemaker Interrogation, Remote (Prof) Jeffrey Rios MD INTERROGATION EVAL REMOTE </90 D 1/2/MEDICAL BILLING SUPERVISOR LEAD P completed ICM Interrogation, Remote (Prof) Jeffrey Rios MD INTERROGATION EVAL REMOTE </30 D CV MNTR SYS completed ICM Interrogation, Remote (Tech) Jeffrey Rios MD INTERROGATION EVAL REMOTE </30 D TECH REVIEW completed ICM Interrogation, Remote (Prof) Jeffrey Rios MD INTERROGATION EVAL REMOTE </30 D CV MNTR SYS completed ICM Interrogation, Remote (Tech) Jeffrey Rios MD INTERROGATION EVAL REMOTE </30 D TECH REVIEW completed ICM Interrogation, Remote (Prof) Jeffrey Rios MD INTERROGATION EVAL REMOTE </30 D CV MNTR SYS completed Pacemaker Interrogation, Remote (Tech) Jeffrey Rios MD INTERROGATION REMOTE </90 D MANAGER OF DIGITAL REVIEW completed Pacemaker Interrogation, Remote (Prof) Jeffrey Serota INTERROGATION EVAL REMOTE </90 D 1/2/MEDICAL BILLING SUPERVISOR LEAD P completed ICM Interrogation, Remote (Prof) Jeffrey Serota INTERROGATION EVAL REMOTE </30 D CV MNTR SYS completed ICM Interrogation, Remote (Tech) Jeffrey Serota INTERROGATION EVAL REMOTE </30 D TECH REVIEW completed ICM Interrogation, Remote (Prof) Jeffrey Serota INTERROGATION EVAL REMOTE </30 D CV MNTR SYS completed ICM Interrogation, Remote (Tech) Jeffrey Serota INTERROGATION EVAL REMOTE </30 D TECH REVIEW completed ICM Interrogation, Remote (Prof) Jeffrey Serota INTERROGATION EVAL REMOTE </30 D CV MNTR SYS completed Pacemaker Interrogation, Remote (Tech) Jeffrey Serota INTERROGATION REMOTE </90 D MANAGER OF DIGITAL REVIEW completed Pacemaker Interrogation, Remote (Prof) Jeffrey Serota INTERROGATION EVAL REMOTE </90 D 1/2/MEDICAL BILLING SUPERVISOR LEAD P completed ICM Interrogation, Remote (Prof) Jeffrey Serota INTERROGATION EVAL REMOTE </30 D CV MNTR SYS completed ICM Interrogation, Remote (Tech) Jeffrey Serota INTERROGATION EVAL REMOTE </30 D TECH REVIEW completed ICM Interrogation, Remote (Prof) Jeffrey Serota INTERROGATION EVAL REMOTE </30 D CV MNTR SYS completed ICM Interrogation, Remote (Tech) Jeffrey Serota INTERROGATION EVAL REMOTE </30 D TECH REVIEW completed ICM Interrogation, Remote (Prof) Jeffrey Serota MD INTERROGATION EVAL REMOTE </30 D CV MNTR SYS completed Pacemaker Interrogation, Remote (Tech) Jeffrey Serota INTERROGATION REMOTE </90 D MANAGER OF DIGITAL REVIEW completed Pacemaker Interrogation, Remote (Prof) Jeffrey Serota MD INTERROGATION EVAL REMOTE </90 D 1/2/MEDICAL BILLING SUPERVISOR LEAD P completed ICM Interrogation, Remote (Prof) Jeffrey Serota INTERROGATION EVAL REMOTE </30 D CV MNTR SYS completed ICM Interrogation, Remote (Tech) Jeffrey Rios MD INTERROGATION EVAL REMOTE </30 D TECH REVIEW completed EKG Latonia james MD completed ICM Interrogation, Remote (Prof) Jeffrey Rios MD INTERROGATION EVAL REMOTE </30 D CV MNTR SYS completed ICM Interrogation, Remote (Tech) Jeffrey Rios MD INTERROGATION EVAL REMOTE </30 D TECH REVIEW completed ICM Interrogation, Remote (Prof) Jeffrey Rios MD INTERROGATION EVAL REMOTE </30 D CV MNTR SYS completed Pacemaker Interrogation, Remote (Tech) Jeffrey Rios MD INTERROGATION REMOTE </90 D MANAGER OF DIGITAL REVIEW completed Pacemaker Interrogation, Remote (Prof) Jeffrey Rios MD INTERROGATION EVAL REMOTE </90 D 1/2/MEDICAL BILLING SUPERVISOR LEAD P completed FVC / MVV with bronchodilator - 40489 Latonia Monreal MD completed FRC - 32152 Latonia james MD completed SpO2 w/o 6min walk/titration Latonia Monreal MD completed DLCO - 48422 Latonia james MD completed ICM Interrogation, Remote (Prof) Jeffrey Rios MD INTERROGATION EVAL REMOTE </30 D CV MNTR SYS completed ICM Interrogation, Remote (Tech) Jeffrey Rios MD INTERROGATION EVAL REMOTE </30 D TECH REVIEW completed EKG Latonia james MD completed ICM Interrogation, Remote (Prof) Jeffrey Rios MD INTERROGATION EVAL REMOTE </30 D CV MNTR SYS completed ICM Interrogation, Remote (Tech) Jeffrey Rios MD INTERROGATION EVAL REMOTE </30 D TECH REVIEW completed ICM Interrogation, Remote (Prof) Jeffrey Rios MD INTERROGATION EVAL REMOTE </30 D CV MNTR SYS completed Pacemaker Interrogation, Remote (Tech) Jeffrey Rios MD INTERROGATION REMOTE </90 D MANAGER OF DIGITAL REVIEW completed Pacemaker Interrogation, Remote (Prof) Jeffrey Rios MD INTERROGATION EVAL REMOTE </90 D 1/2/MEDICAL BILLING SUPERVISOR LEAD P completed ICM Interrogation, Remote (Prof) Latonia Monreal MD INTERROGATION EVAL REMOTE </30 D CV MNTR SYS completed ICM Interrogation, Remote (Tech) Saoctaviano Monreal MD INTERROGATION EVAL REMOTE </30 D TECH REVIEW completed EKG Latonia james MD completed SNOMED-CT: [id number] Current Medications Documented Latonia Monreal MD completed ICM Interrogation, Remote (Prof) Latonia Monreal MD INTERROGATION EVAL REMOTE </30 D CV MNTR SYS completed ICM Interrogation, Remote (Tech) Saoctaviano Monreal MD INTERROGATION EVAL REMOTE </30 D TECH REVIEW completed ICM Interrogation, Remote (Prof) Latonia Monreal MD INTERROGATION EVAL REMOTE </30 D CV MNTR SYS completed Pacemaker Interrogation, Remote (Tech) Saoctaviano Monreal MD INTERROGATION REMOTE </90 D MANAGER OF DIGITAL REVIEW completed Pacemaker Interrogation, Remote (Prof) Latonia Monreal MD INTERROGATION EVAL REMOTE </90 D 1/2/MEDICAL BILLING SUPERVISOR LEAD P completed ICM Interrogation, Remote (Prof) Saoctaviano Monreal MD INTERROGATION EVAL REMOTE </30 D CV MNTR SYS completed ICM Interrogation, Remote (Tech) Saulius Samvaitis MD INTERROGATION EVAL REMOTE </30 D TECH REVIEW completed ICM Interrogation, Remote (Prof) Saulius Kalvaitis MD INTERROGATION EVAL REMOTE </30 D CV MNTR SYS completed ICM Interrogation, Remote (Tech) Saulius Samvaitis MD INTERROGATION EVAL REMOTE </30 D TECH REVIEW completed ICM Interrogation, Remote (Prof) Saulius Kalvaitis MD INTERROGATION EVAL REMOTE </30 D CV MNTR SYS completed ICM Interrogation, Remote (Tech) Saulius Kalvaitis MD INTERROGATION EVAL REMOTE </30 D TECH REVIEW completed ICM Interrogation, Remote (Prof) Latonia Monreal MD INTERROGATION EVAL REMOTE </30 D CV MNTR SYS completed Pacemaker Interrogation, Remote (Tech) Latonia Monreal MD INTERROGATION REMOTE </90 D MANAGER OF DIGITAL REVIEW completed Pacemaker Interrogation, Remote (Prof) Latonia Monreal MD INTERROGATION EVAL REMOTE </90 D 1/2/MEDICAL BILLING SUPERVISOR LEAD P completed EKG Latonia james MD completed SNOMED-CT: [id number] Current Medications Documented Latonia Monreal MD completed ICM Interrogation, Remote (Prof) Latonia Monreal MD INTERROGATION EVAL REMOTE </30 D CV MNTR SYS completed ICM Interrogation, Remote (Tech) Latonia Monreal MD INTERROGATION EVAL REMOTE </30 D TECH REVIEW completed ICM Interrogation, Remote (Prof) Latonia Monreal MD INTERROGATION EVAL REMOTE </30 D CV MNTR SYS completed ICM Interrogation, Remote (Tech) Latonia Monreal MD INTERROGATION EVAL REMOTE </30 D TECH REVIEW completed ICM Interrogation, Remote (Prof) Latonia Monreal MD INTERROGATION EVAL REMOTE </30 D CV MNTR SYS completed ICM Interrogation, Remote (Tech) Latonia Monreal MD INTERROGATION EVAL REMOTE </30 D TECH REVIEW completed ICM Interrogation, Remote (Prof) Saulius Loreitis MD INTERROGATION EVAL REMOTE </30 D CV MNTR SYS completed Pacemaker Interrogation, Remote (Tech) Latonia Monreal MD INTERROGATION REMOTE </90 D MANAGER OF DIGITAL REVIEW completed Pacemaker Interrogation, Remote (Prof) Saulius Loreitis MD INTERROGATION EVAL REMOTE </90 D 1/2/MEDICAL BILLING SUPERVISOR LEAD P completed ICM Interrogation, Remote (Prof) Latonia Monreal MD INTERROGATION EVAL REMOTE </30 D CV MNTR SYS completed ICM Interrogation, Remote (Tech) Saulius Samvaitis MD INTERROGATION EVAL REMOTE </30 D TECH REVIEW completed ICM Interrogation, Remote (Prof) Saulius Kalvaitis MD INTERROGATION EVAL REMOTE </30 D CV MNTR SYS completed ICM Interrogation, Remote (Tech) Saulius Kalvaitis MD INTERROGATION EVAL REMOTE </30 D TECH REVIEW completed ICM Interrogation, Remote (Prof) Saulius Kalvaitis MD INTERROGATION EVAL REMOTE </30 D CV MNTR SYS completed Pacemaker Interrogation, Remote (Tech) Saulius Samvaitis MD INTERROGATION REMOTE </90 D MANAGER OF DIGITAL REVIEW completed Pacemaker Interrogation, Remote (Prof) Saulius Samvaitis MD INTERROGATION EVAL REMOTE </90 D 1/2/MEDICAL BILLING SUPERVISOR LEAD P completed ICM Interrogation, Remote (Prof) Saulius Torrezitis MD INTERROGATION EVAL REMOTE </30 D CV MNTR SYS completed ICM Interrogation, Remote (Tech) Saulius Samvaitis MD INTERROGATION EVAL REMOTE </30 D TECH REVIEW completed ICM Interrogation, Remote (Prof) Saulius Torrezitis MD INTERROGATION EVAL REMOTE </30 D CV MNTR SYS completed ICM Interrogation, Remote (Tech) Saulius Torrezitis MD INTERROGATION EVAL REMOTE </30 D TECH REVIEW completed EKG ulius Wang james MD completed SNOMED-CT: [id number] Current Medications Documented Saulius Kaljoseluisitis completed EKG ulius Wang s completed SNOMED-CT: [id number] Current Medications Documented Saulius Kalvaitis completed ICM Interrogation, Remote (Prof) Saulius Loreitis MD INTERROGATION EVAL REMOTE </30 D CV MNTR SYS completed Pacemaker Interrogation, Remote (Tech) Saulius Torrezitis MD INTERROGATION REMOTE </90 D MANAGER OF DIGITAL REVIEW completed Pacemaker Interrogation, Remote (Prof) Latonia Monreal MD INTERROGATION EVAL REMOTE </90 D 1/2/MEDICAL BILLING SUPERVISOR LEAD P completed ICM Interrogation, Remote (Prof) aLtonia Monreal MD INTERROGATION EVAL REMOTE </30 D CV MNTR SYS completed ICM Interrogation, Remote (Tech) Latonia Monreal MD INTERROGATION EVAL REMOTE </30 D TECH REVIEW completed ICM Interrogation, Remote (Prof) Latonia Monreal MD INTERROGATION EVAL REMOTE </30 D CV MNTR SYS completed ICM Interrogation, Remote (Tech) Latonia Monreal MD INTERROGATION EVAL REMOTE </30 D TECH REVIEW completed EKG Latonia james MD completed SNOMED-CT: [id number] Current Medications Documented Latonia Monreal MD completed EKG Latonia james MD completed SNOMED-CT: [id number] Current Medications Documented Latonia Monreal MD completed EKG Jeffrey Rios MD complete d EKG Jeffrey Rios MD complete d EKG Jeffrey Rios MD complete d EKG Jeffrey Rios MD complete d
--- OUTSIDE RECORDS SUMMARY | 2025-01-24 16:33 | XMS_ITS | Clinical Summary ---
Author Organization [facility] [employer] Address [address] [place] [address] Care Team Providers Care Software Sales Name Role Phone Carmen Pinto PA-C Primary Care Provider [phone] Source Comments [facility],non-owned Affiliates and Associated Physician Practices is amultiple site organization consisting of ambulatory clinics and hospital sitesin [place], [place], [place] and [place]. This disclosure is being madepursuant to the Care Everywhere program and may not contain all information available regarding this patient. Last updated 18.[facility] [employer] Allergies Active Allergy Reactions Criticality Noted Date Comments Contrast-Iodinated Agents For Ct/Other Anaphylaxis High 08/03/2023 Shellfish Allergy Anaphylaxis High 08/03/2023 Medications * Be aware that medications may not be up to date on this document. Alwaysverify current medications with the patient. Medication Sig Dispensed Refills Start Date End Date Status ALBUTEROL INIndications:Pos terior tibial nerve injury, right, initial encounter Active acyclovir (Zovirax) 800 MG tablet Take 1 (one) tablet by mouth once daily As directed. 07/17/2023 Active albuterol HFA (Proventil; Ventolin; Proair) 108 (90 Base) MCG/ACT inhaler Inhale 2 (two) puffs by mouth every 4 hours as needed 07/17/2023 Active tiotropium (Spiriva Respimat) 2.5 MCG/ACT inhaler Inhale 2 (two) puffs by mouth once daily Active fluticasone-vilan terol (Breo Ellipta) 200-25 MCG/ACT inhaler Inhale 1 (one) puff by mouth once daily Active vitamin D, ergocalciferol, (Drisdol) 1.25 MG (08826 UT) capsule Take 1 (one) capsule by mouth every Friday07/17/2023 Active montelukast (Singulair) 10 MG tablet Take 1 (one) tablet by mouth once daily 07/17/2023 Active cetirizine (ZyrTEC) 10 MG tablet Take 1 (one) tablet by mouth once daily as needed 07/17/2023 Active omeprazole (PriLOSEC) 20 MG capsule Take 1 (one) capsule by mouth once daily 07/17/2023 Active acetaminophen (Tylenol) 500 MG tablet Take 2 (two) tablets by mouth every 6 hours Maximum allowable Acetaminophen amount = 4 Grams (4000 mg) / 24 hours. 90 tablet 1 08/06/2023 Active diphenhydrAMINE (Benadryl Allergy) 25 MG capsule Take 1 (one) capsule by mouth every 6 hours as needed for Itching 08/06/2023 Active docusate sodium (Colace) 100 MG capsule Take 1 (one) capsule by mouth 2 times daily 60 capsule 1 08/06/2023 Active Active Problems Problem Noted Date Diagnosed Date Fall, initial encounter 08/03/2023 Closed fracture of distal en d of right femur, unspecified fracture morphology, initial encounter 08/03/2023 Acute pain of right knee 08/03/2023 Posterior tibial nerve injury, right, initial en counter Social History Tobacco Use Types Packs/Day Years Used Date Smoking Tobacco: Every Day Cigarettes Last attempted to quit: 05/30/2018 Smokeless Tobacco: Never Tobacco Cessation:Ready to Q uit: Not Asked; Counseling Given: Not Answered Alcohol Use Standard Drinks/Week Comments Not Currently 0 (1 standard drink = 0.6 oz pur e alcohol) rarely PHQ-2 Answer Date Recorded Patient Health Questionnaire-2 Score 1 03/06/2024 Sex and Gender Information Value Date Recorded Sex Assigned at Not on file Gender Identity Not on file Sexual Orientation Not on file Last Filed Vital Signs Vital Sign Reading Time Taken Comments Blood Pressure 98/60 08/06/2023 4:00 AM CDT Pulse 72 08/06/2023 4:00 AM CDT Temperature 36.9 C (98.4 F) 08/06/2023 4:00 AM CDT Respiratory Rate 16 08/06/2023 4:00 AM CDT Oxygen Saturation 93% 08/06/2023 4:00 AM CDT Inhaled Oxygen Concentration - - Weight 105.2 kg (232 lb) 03/11/2024 10:48 AM CDT Height 167.6 cm (5' 6 ) 03/11/2024 10:48 AM CDT Body Mass Index 37.45 03/11/2024 10:48 AM CDT Plan of Treatment Health Maintenance Due Date Last Done Comments COLOGUARD (AGES 45-75) - COLON CA SCREENING 1975 COLON MONITORING 1975 COLONOSCOPY - COLON CA SCREENING 1975 CT COLONOGRAPHY - COLON CA SCREENING 1975 Colorectal Cancer Screening 1975 FIT - COLON CA SCREENING 1975 FLEX SIG - COLON CA SCREENING 1975 LIPID TESTING 1975 MAMMOGRAM 1975 PAP SMEAR 1975 HIV SCREENING 1990 HEPATITIS C SCREENING 08/08/1993 DTAP/TDAP/TD VACCINES (1 - Tdap) 1994 HEPATITIS B VACCINE (1 of 3 - 19+ 3-dose series) 1994 PNEUMOCOCCAL VACCINE (1 of 2 - PCV) 1994 COVID-19 VACCINE (1 - season) 2024 DEPRESSION SCREENING 10/20/2024 11/27/2023, 10/16/20 23 MEDICARE AWV CALENDAR YEAR 2024 INFLUENZA VACCINE (Season Ended) 2025 ZOSTER VACCINE (1 of 2) 2025 SCREENING FOR DIABETES 08/06/2026 3, 08/05/2023, 08/04/2023, Additional history exists HIB VACCINE Aged Out No longer eligi ble based on patient's age to complete this topic HPV VACCINE Aged Out No longer eligi ble based on patient's age to complete this topic MENINGOCOCCAL (Group B) VACCINE SHARED DECISION-MAKING Aged Out No longer eligible based on patient's age to complete this topic MENINGOCOCCAL GROUPS A/C/Y/W VACCINE Aged Out No longer eligible based on patient's age to complete this topic Medical Devices Implanted Type Area Programs Assistant Device Identifier Shelf Expiration Date Model / Serial / Lot Plate Implanted:Qty: 1 on 08/04/2023 by Arya Khan MD at [facility] Right: [employer]ur [employer] Trauma [id number] S / / Screw Implanted:Qty: 1 on 08/04/2023 by Arya Khan MD at [facility] Right: [employer] Trauma [id number] / / Screw Implanted:Qty: 1 on 08/04/2023 by Arya Khan MD at [facility] Right: [employer] Trauma [id number] / / Screw 4.5mm 8mm 38mm Cortx Slf-Tap Lg Implanted:Qty: 1 on 08/04/2023 by Arya Khan MD at [facility] Right: [employer] [id number] / / Screw 4.5mm 8mm 42mm Cortx Slf-Tap Lg Implanted:Qty: 1 on 08/04/2023 by Arya Khan MD at [facility] Right: [employer] 214.842 / / Screw 4.5mm 8mm 40mm 3.5mm Slf-Tap Lg Implanted:Qty: 1 on 08/04/2023 by Arya Khan MD at [facility] Right: [employer] 214.840 / / Screw Implanted:Qty: 2 on 08/04/2023 by Arya Khan MD at [facility] Right: [employer] Trauma [id number] / / Explanted Type Area Programs Assistant Device Identifier Shelf Expiration Date Model / Serial / Lot Screw Explanted:Qty: 1 on 08/04/2023 by Arya Khan MD at [facility] Right: [employer] Trauma [id number] / / Screw Explanted:Qty: 1 on 08/04/2023 by Arya Khan MD at [facility] Right: [employer] Trauma 214.885 / / Screw 4.5mm 8mm 44mm 3.5mm Slf-Tap Lg Explanted:Qty: 1 on 08/04/2023 by Arya Khan MD at [facility] Right: [employer] [id number] / / Screw 4.5mm 8mm 46mm 3.5mm Slf-Tap Lg Explanted:Qty: 1 on 08/04/2023 by Arya Khan MD at [facility] Right: Fem[employer]s [facility] 214.846 / / Procedures Procedure Name Priority Date/Time Associated Diagnosis Comments BASIC METABOLIC PANEL (CALCIUM TOTAL) AM Draw 08/06/2023 12:35 AM CDT from Last 3 Months or Most Recently Relevant to Health Maintenance Results * (ABNORMAL) BASIC METABOLIC PANEL (CALCIUM TOTAL) (08/06/2023 12:35 AM CDT) BUN 13 7 - 26 mg/dL 08/06/2023 3:03 AM [facility] Creatinine 0.77 0.56 - 0.96 mg/dL 08/06/2023 3:03 AM [facility] Sodium 138 136 - 145 mmol/L 08/06/2023 3:03 AM [facility] Potassium 3.4(L) 3.5 - 4.5 mmol/L 08/06/2023 3:03 AM [facility] Chloride 107 98 - 107 mmol/L 08/06/2023 3:03 AM [facility] CO2 22 22 - 29 mmol/L 08/06/2023 3:03 AM [facility] Glucose 89 70 - 115 mg/dL 08/06/2023 3:03 AM [facility] Calcium 8.3(L) 8.4 - 10.2 mg/dL 08/06/2023 3:03 AM [facility] Anion Gap 9 6 - 16 08/06/2023 3:03 AM [facility] BUN/Creatinine Ratio 17 7 - 23 08/06/2023 3:03 AM [facility] Osmolality Calculated 286 275 - 295 mOsm/kg 08/06/2023 3:03 AM [facility] eGFR by CKD-EPI >90 >=90 mL/min/1.7 3 m2 08/06/2023 3:03 AM CDT [facility] Blood BLOOD SPECIMEN / Unknown Lab Venipuncture / Unknown 08/06/2023 12:35 AM CDT 08/06/2023 2:28 AM CDT Israel Canales MD LAB - CHEMISTRY [facility] [address] [place] [address], [facility] [phone] from Last 3 Months or Most Recently Relevant to Health Maintenance Advance Directives * Full Code (Latest Code Status on File) Date Activated Date Inactivated Comments 08/03/2023 10:11 PM 08/06/2023 1:17 PM Care Teams Software Sales Relationship Specialty Start Date End Date Carmen Pinto PA-C PCP - General 06/23/18
== END 2025-01-24 14:24 | disposition home or self-care (01) ==
LOC: ANHLAB 14:25
PROVIDERS: PCP Internal Medicine; Visit Provider Obstetrics & Gynecology
DX: N92.0 Excessive and frequent menstruation with regular cycle (principal)
CPT/HCPCS: 36415; 85025

== ENCOUNTER 2025-04-10 07:21 | Emergency (ER) | payer MEDICARE, MEDICAID, SELFPAY ==
--- NOTE | ~2025-04-10 | XR_ITS ---
Clinical Indication: Shortness of breath, chest pain PA and lateral views of the chest: Comparison: None Findings: The lungs are clear, without evidence of focal consolidation or pleural effusion. Cardiome diastinal silhouette is within normal limits, with pacemaker device. Bones and soft tissues are unrem arkable. Impression: Clear lungs. Reviewed, dictated and finalized at location . Impression: Clear lungs.
[2025-04-10 07:28] VITALS: BP 106/69; PULSE 84; RESP 18; TEMP 36.7; O2SAT 98
[2025-04-10 07:34] VITALS: BP 109/63; PULSE 79; RESP 20; O2SAT 98
[2025-04-10 07:38] VITALS: O2SAT 100
--- NOTE | 2025-04-10 07:40 | ECG_ITS ---
Test Date: 2025-04-10 07:44:54 Measurements Intervals [place] Rate: 75 P: 55 LA: 154 QRS: 25 QRSD: 96 T: 30 QT: 377 QTc: 424 Interpretive Statements SINUS RHYTHM CONSIDER INFERIOR INFARCT, AGE INDETERMINATE MODERATE T-WAVE ABNORMALITY, CONSIDER ANTERIOR ISCHEMIA ABNORMAL ECG No previous ECG available for comparison Electronically Signed On 04-10-2025 08:22:42 CDT by Nimesh Herrera D.O.
[2025-04-10 07:53] VITALS: PULSE 87
[2025-04-10 07:55] LABS: Basophils Absolute Auto 0.1 K/mm3 (0.0-0.1); Basophils Percent Auto 0.5 % (0.2-1.2); Eosinophils Absolute Auto 0.2 K/mm3 (0-0.3); Eosinophils Percent Auto 1.7 % (0-4.4); Hematocrit 38.7 % (37.0-47.0); Hemoglobin 12.3 g/dL (12.0-15.0); Immature Granulocyte Absolute 0.05 K/mm3 (0.00-0.031); Immature Granulocyte Percent A 0.5 % (0-0.5); Lymphocytes Absolute Auto 2.65 K/mm3 (0.9-3.2); Lymphocytes Percent Auto 24.2 % (18.3-44.2); Mean Corpuscular HGB Conc 31.8 g/dl (32-36); Mean Corpuscular Hemoglobin 27.3 pg (26-34); Mean Corpuscular Volume 85.8 fl (80-100); Monocytes Percent Auto 8.8 % (2.6-8.5); Neutrophils Percent Auto 64.3 % (45.5-73.1); Platelet Count Result 217 k/mm3 (150-375); Red Blood Count 4.51 M/mm3 (4.2-5.4); Red Cell Distribution Width 14.1 % (11.5-14.5); White Blood Count 10.9 K/mm3 (4.5-10.0)
[2025-04-10 08:06] LABS: Alanine Aminotransferase 12 U/L (6-35); Albumin Level 3.6 g/dL (3.5-5.1); Alkaline Phosphatase 81 U/L (38-126); Anion Gap 7 mmol/L (4-12); Aspartate Amino Transferase 18 U/L (14-36); Bilirubin,Total 0.4 mg/dL (0.2-1.3); Blood Urea Nitrogen 13 mg/dL (7-17); Calcium 8.7 mg/dL (8.4-10.2); Carbon Dioxide 23 mmol/L (22-30); Chloride 108 mmol/L (98-107); Estimated CRCL calculation 88 ml/min; Estimated Glomerular Filt Rate > 60; Glucose 83 mg/dL (65-110); Lipase 72 U/L (23-300); Potassium 3.5 mmol/L (3.4-5.0); Sodium 138 mmol/L (137-145); Total Protein 6.6 g/dL (6.3-8.2)
[2025-04-10 08:13] LABS: Prothrombin Time 13.1 Seconds (11.1-14.7)
[2025-04-10 08:16] LABS: Partial Thromboplastin Time 28.2 Seconds (22.3-36.8)
[2025-04-10 08:17] LABS: Troponin I < 0.012 ng/mL (0.000-0.034)
--- NOTE | 2025-04-10 08:45 | ED.SOB ---
HPI - SOB/Dyspnea General Chief Complaint: Shortness of Breath/Dyspnea Stated Complaint: hurts to breath Time Seen by Provider: 04/10/25 07:44 Source: patient Mode of arrival: ambulatory Limitations: no limitations History of Present Illness HPI Narrative: Patient presents with report of left neck pain and pain around/in her left ear for the past 3 days. No difficulty or pain with swallowing. No drainage from the ear. Has been taking ibuprofen 400mg q4-6 hours. Possibly started after carrying heavy bag of dogfood. She states it hurts to breathe. No cough, fevers, chills. Feels like her muscle is tight. No sick contacts. Smokes <1/2 PPD. Underlying respiratory condition includes allergic asthma. Used to use an inhaler. Never required bipap or intubation. No unilateral leg swelling. No hemoptysis. No recent surger/trauma. No paresthesias. Lives with and child, neither of whom are sick. No prior DVT/PE. Not on hormones. Has a PCP. Related Data Home Medications ?Medication ?Instructions ?Recorded ?Confirmed ?Last Taken ?Type cetirizine 10 mg tablet (Zyrtec) 10 mg PO DAILY 03/12/21 Unknown History fluticasone furoate 200 inhalation 03/12/21 Unknown History mcg-vilanterol 25 mcg/dose inhalation powder (Breo Ellipta) fluticasone propionate 220 inhalation 03/12/21 Unknown History mcg/actuation HFA aerosol inhaler (Flovent HFA) fluticasone propionate 50 intranasal 03/12/21 Unknown History mcg/actuation nasal spray,suspension montelukast 10 mg tablet mg 03/12/21 Unknown History omeprazole 20 mg capsule,delayed 03/12/21 Unknown History release Allergies Allergy/AdvReac Type Severity Reaction Status Date / Time iodine Allergy Unknown RASH Verified 04/10/25 07:22 diphenhydramine AdvReac Unknown Other Verified 04/10/25 07:22 SHELLFISH Allergy Unknown SWELLING Uncoded 04/10/25 07:22 [facility] Past Medical History Medical History Allergic asthma Anxiety UTI (urinary tract infection) Asthma Sinusitis Open fracture of right lower leg Bradycardia Pacemaker Surgical History Surgical History H/O tubal ligation Hx of cholecystectomy Hx of tonsillectomy History of open reduction and internal fixation (ORIF) procedure Family History Family History (Updated 12/01/24 @ 09:34 by Christine Sanon Sobia) Mother Dementia Other Heart disease Social History Social History (Updated 04/12/25 @ 22:49 by Radha Nicole MD) Smoking packs per day: 0.4 Smoking cigarettes per day: 8.0 Smoking status: Current every day smoker Tobacco type: cigarettes Alcohol intake: current Alcohol use details: occasional Substance use: never Substance use type: does not use Do You Feel Safe in your Home?: Yes Lack of Transportation: No Current Housing: Decline to Answer Concerned About Future Housing: Decline to Answer Difficulty Paying Gas/Electric Bills: Decline to Answer Difficulty Paying for Meds: Decline to Answer Currently Unemployed: Decline to Answer Education: Decline to Answer Difficulty w/ Childcare or Family Care: Decline to Answer Living arrangements: with family Additional living arrangements comments: ; and child Occupation/Education: occupation Additional occupation/education comments: works at a [employer], stocking equipment/making coffee (overnight) Gender identity (if verbalized by the patient): Female Sexual Orientation (if Verbalized by the Patient): Straight or Heterosexual Exam Narrative: GENERAL: Well-appearing, well-nourished, and in no acute distress. HEAD: Normocephalic, atraumatic. EYES: Non injected, non icteric ENT: Nares clear, no rhinorrhea or epistaxis. Gross auditory acuity intact. Bilateral TMs easily visualized and w/o bulging, effusion, erythema. NECK: Supple. No meningismus. No TTP throughout neck. No lymphadenopathy. Sternocleidomastoid muscles 5/5 strength. 5/5 strength elevating/engaging trapezius muscles. CHEST: Speaking in full sentences. No respiratory distress. HEART: Regular rate and rhythm. . ABDOMEN: Soft, nondistended. No rigidity or guarding. Not peritoneal EXTREMITIES: Normal range of motion. No b/l lower extremity edema. SKIN: Warm, dry, no rash. NEURO: No focal deficits. Alert and oriented. Answering questions. Following commands. Normal speech without aphasia or dysarthria. PSYCH: Normal mood and affect. Course Vital Signs Vital signs: Vital Signs Temperature 98.1 F 04/10/25 07:28 Pulse Rate 84 04/10/25 07:28 Respiratory Rate 18 04/10/25 07:28 Blood Pressure 106/69 04/10/25 07:28 Pulse Oximetry 98 04/10/25 07:28 Temperature 98.1 F 04/10/25 07:28 Pulse Rate 84 04/10/25 10:08 Respiratory Rate 18 04/10/25 10:08 Blood Pressure 105/60 04/10/25 10:08 Pulse Oximetry 100 04/10/25 10:08 Oxygen Delivery Room Air 04/10/25 07:38 MDM - SOB/Dyspnea MDM Narrative Medical decision making narrative: Patient presents with left neck and left ear pain. Feels like muscle is tight. In the emergency department they are afebrile with vital signs within normal limits. Also states it hurts to breathe but PERC Rule Age greater than or equal to 50: No HR greater than or equal to 100: No O2 sat room air <95%: No Unilateral leg swelling: No Hemoptysis: No Recent surgery or trauma less than 4 wks ago requiring tx with general anesthesia: No Prior PE or DVT: No Hormone use (OCP, HRT or estrogenic hormone use in M/F patients): No There is very low suspicion for PE at this time so the for further workup. Mild leukocytosis. Patient's primary concern is her neck and ear pain and I suspect musculoskeletal etiology. She is given acetaminophen and a muscle relaxer while in the emergency department. Patient reassessed at 10:00 a.m.. She reports feeling much better. We discussed multimodal pain management including appropriate dosing of ibuprofen. Advised that she use the muscle relaxer before going to bed which in her case is in the morning as she works overnight. Differential Diagnosis Differential diagnosis: Likely other (neck sprain/strain; lymphadenopathy; acute otitis media/externa; ) Lab Data Attestation: I reviewed the patient's lab results. 04/10/25 07:46 04/10/25 07:46 Labs: Lab Results 04/10/25 Range/Units 07:46 WBC 10.9 H (4.5-10.0) K/mm3 RBC 4.51 (4.2-5.4) M/mm3 Hgb 12.3 (12.0-15.0) g/dL Hct 38.7 (37.0-47.0) % MCV 85.8 (80-100) fl MCH 27.3 (26-34) pg MCHC 31.8 L (32-36) g/dl RDW 14.1 (11.5-14.5) % Plt Count 217 (150-375) k/mm3 MPV 11.0 H (7.4-10.4) fl Immature Gran % (Auto) 0.5 (0-0.5) % Neut % (Auto) 64.3 (45.5-73.1) % Lymph % (Auto) 24.2 (18.3-44.2) % Alpine % (Auto) 8.8 H (2.6-8.5) % Eos % (Auto) 1.7 (0-4.4) % Baso % (Auto) 0.5 (0.2-1.2) % Lymph # (Auto) 2.65 (0.9-3.2) K/mm3 Alpine # (Auto) 1.0 H (0.1-0.6) K/mm3 Eos # (Auto) 0.2 (0-0.3) K/mm3 Baso # (Auto) 0.1 (0.0-0.1) K/mm3 Abs Immat Gran (auto) 0.05 H (0.00-0.031) K/mm3 Absolute Neuts (auto) 7.0 H (1.3-6.7) K/mm3 Absolute Nucleated RBC 0.000 (0.0-0.012) K/mm3 Nucleated RBC % 0.0 (0.0-0.2) % PT 13.1 (11.1-14.7) Seconds INR 1.0 APTT 28.2 (22.3-36.8) Seconds Sodium 138 (137-145) mmol/L Potassium 3.5 (3.4-5.0) mmol/L Chloride 108 H (98-107) mmol/L Carbon Dioxide 23 (22-30) mmol/L Anion Gap 7 (4-12) mmol/L BUN 13 (7-17) mg/dL Creatinine 0.83 (0.7-1.0) mg/dL Estim Creat Clear Calc 88 ml/min Estimated GFR > 60 (59 - ) Glucose 83 (65-110) mg/dL Calcium 8.7 (8.4-10.2) mg/dL Total Bilirubin 0.4 (0.2-1.3) mg/dL AST 18 (14-36) U/L ALT 12 (6-35) U/L Alkaline Phosphatase 81 (38-126) U/L Troponin I < 0.012 (0.000-0.034) ng/mL Total Protein 6.6 (6.3-8.2) g/dL Albumin 3.6 (3.5-5.1) g/dL Lipase 72 (23-300) U/L Imaging Data Radiologist's impression: Impression: Clear lungs. ECG Data EKG #1: Attestation: I personally reviewed and interpreted this ECG as follows: ECG completion date: 04/10/25 ECG completion time: 07:44 Interpretation: Normal sinus rhythm at a rate of 75 beats per minute. MS interval 154. QRS 96. QT/QTC 377/407. Good R-wave progression across the precordial leads. T-wave flattening in 3 but upright in normal in contiguous inferior leads 2 and AVF. There is T-wave inversion in V3 however I suspect this is due to lead placement. Discharge Plan Discharge Clinical Impression: Leukocytosis, Neck pain on left side, Otalgia of left ear Patient Disposition: Home Condition: Stable Instructions: Antibiotic Form, Earache (ED), Acute Neck Pain (ED) Additional Instructions: Acetaminophen/Tylenol (maximum 4000 mg per day) is safe to take with NSAIDs (ibuprofen/Motrin) for pain relief. You can also use the muscle relaxer before you go to bed. Follow-up with primary care physician. Return to the emergency department with any new, worsening, or unmanaged symptoms such as difficulty breathing, difficulty eating/swallowing, numbness or tingling in your arms, etc. Patient Language: Greenlandic Prescriptions: New acetaminophen 500 mg capsule 1,000 mg PO Q6H PRN (Reason: pain) Qty: 30 0RF methocarbamol 750 mg tablet 750 mg PO HS Qty: 7 0RF ibuprofen 600 mg tablet 600 mg PO TID PRN (Reason: pain) Qty: 30 0RF No Action tolterodine [Detrol LA] 4 mg capsule,extended release 24hr 4 mg PO DAILY Qty: 90 1RF cetirizine [Zyrtec] 10 mg Tablet 10 mg PO DAILY omeprazole 20 mg capsule,delayed release(DR/EC) montelukast 10 mg tablet Flovent HFA 220 mcg/actuation HFA aerosol inhaler INHALATION fluticasone propionate 50 mcg/actuation spray,suspension INTRANASAL Breo Ellipta 200-25 mcg/dose blister with device INHALATION Follow-up/Referrals: Froilan,Donal Maxwell MD [Primary Care Provider] - Stand Alone Forms: Work/School Release IP Time of Disposition: 10:01
[2025-04-10] MEDS: ACETAMINOPHEN 500 MG TABLET 1000 MG PO (09:11)
[2025-04-10] MEDS: methocarbamoL 500 MG TABLET PO (09:11)
[2025-04-10 09:12] VITALS: BP 108/70; PULSE 88; RESP 20; O2SAT 100
[2025-04-10 10:08] VITALS: BP 105/60; PULSE 84; RESP 18; O2SAT 100
== END 2025-04-10 10:10 | disposition home or self-care (01) ==
PROVIDERS: Emergency Provider Student in an Organized Health Care Education/Training Program; PCP Internal Medicine
DX: D72.829 Elevated white blood cell count, unspecified (principal); M54.2 Cervicalgia; H92.02 Otalgia, left ear; Z95.0 Presence of cardiac pacemaker; J45.909 Unspecified asthma, uncomplicated; F17.210 Nicotine dependence, cigarettes, uncomplicated
CPT/HCPCS: 36415; 71046; 80053; 83690; 84484; 85025; 85610; 85730; 93005; 99284; A9270

== ENCOUNTER 2025-06-25 17:33 | Emergency (ER) | payer MEDICARE, MEDICAID, SELFPAY ==
--- OUTSIDE RECORDS SUMMARY | 2025-06-25 17:36 | XMS_ITS | Clinical Summary ---
Author Organization [facility] [employer] Address [address] [place] [address] Care Team Providers Care Receiving Associate Store Name Role Phone Carmen Pinto PA-C Primary Care Provider [phone] Source Comments [facility],non-owned Affiliates and Associated Physician Practices is amultiple site organization consisting of ambulatory clinics and hospital sitesin [place], [place], [place] and [place]. This disclosure is being madepursuant to the Care Everywhere program and may not contain all information available regarding this patient. Last updated 18.[facility] [employer] Allergies Active Allergy Reactions Criticality Noted Date Comments Contrast-Iodinated Agents For Ct/Other Anaphylaxis High 08/03/2023 Shellfish Allergy Anaphylaxis High 08/03/2023 Medications * Be aware that medications may not be up to date on this document. Alwaysverify current medications with the patient. ALBUTEROL INIndications: Posterior tibial nerve injury, right, initial encounter Active acyclovir (Zovirax) 800 MG tablet Take 1 (one) tablet by mouth once daily As directed. 3 Active albuterol HFA (Proventil; Ventolin; Proair) 108 (90 Base) MCG/ACT inhaler Inhale 2 (two) puffs by mouth every 4 hours as needed 3 Active tiotropium (Spiriva Respimat) 2.5 MCG/ACT inhaler Inhale 2 (two) puffs by mouth once daily Active fluticasone-vi lanterol (Breo Ellipta) 200-25 MCG/ACT inhaler Inhale 1 (one) puff by mouth once daily Active vitamin D, ergocalciferol , (Drisdol) 1.25 MG (16746 UT) capsule Take 1 (one) capsule by mouth every Friday 3 Active montelukast (Singulair) 10 MG tablet Take 1 (one) tablet by mouth once daily 3 Active cetirizine (ZyrTEC) 10 MG tablet Take 1 (one) tablet by mouth once daily as needed 3 Active omeprazole (PriLOSEC) 20 MG capsule Take 1 (one) capsule by mouth once daily 3 Active acetaminophen (Tylenol) 500 MG tablet Take 2 (two) tablets by mouth every 6 hours Maximum allowable Acetaminophen amount = 4 Grams (4000 mg) / 24 hours. 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 Gender Identity Not on file Sexual Orientation [...] 10:48 AM CDT Height 167.6 cm (5' 6) 03/11/2024 10:48 AM CDT Body Mass Index [...] SCREENING 1975 LIPID TESTING 1975 MAMMOGRAM 1975 HIV SCREENING 1990 HEPATITIS C SCREENING 08/08/1993 DTAP/TDAP/TD VACCINES (1 - Tdap) 1994 HEPATITIS B VACCINE (1 of 3 - 19+ 3-dose series) 1994 PAP SMEAR 1996 DEPRESSION SCREENING 10/20/2024 11/27/2023, 10/16/20 23 MEDICARE AWV CALENDAR YEAR 2024 COVID-19 VACCINE ( - season) 2025 INFLUENZA VACCINE (#1) 2025 ZOSTER VACCINE (1 of 2) 2025 [...] this topic Medical Devices Implanted Type Area Fitting Supervisor Device Identifier Shelf Expiration Date Model / Serial / Lot Plate Implanted:Qty: 1 on 08/04/2023 by Arya Khan MD at [facility] Right: [employer] Trauma [id number] S / / Screw Implanted:Qty: 1 on 08/04/2023 by Arya Khan MD at [facility] Right: [employer] Trauma [id number] / / Screw Implanted:Qty: 1 on 08/04/2023 by Arya Khan MD at [facility] Right: [employer] Trauma [id number] / / Screw 4.5mm 8mm 38mm Cortx Slf-Tap Lg Implanted:Qty: 1 on 08/04/2023 by Arya Khan MD at [facility] Right: [employer] 214.838 / / Screw 4.5mm 8mm 42mm Cortx Slf-Tap Lg Implanted:Qty: 1 on 08/04/2023 by Arya Khan MD at [facility] Right: [employer] 214.842 / / Screw 4.5mm 8mm 40mm 3.5mm Slf-Tap Lg Implanted:Qty: 1 on 08/04/2023 by Arya Khan MD at [facility] Right: [employer] 214.840 / / Screw Implanted:Qty: 2 on 08/04/2023 by Arya Khan MD at [facility] Right: [employer] Trauma [id number] / / Explanted Type Area Fitting Supervisor Device Identifier Shelf Expiration Date Model / Serial / Lot Screw Explanted:Qty: 1 on 08/04/2023 by Arya Khan MD at [facility] Right: [employer] Trauma 214.920 / / Screw Explanted:Qty: 1 on 08/04/2023 by Arya Khan MD at [facility] Right: [employer] Trauma 214.885 / / Screw 4.5mm 8mm 44mm 3.5mm Slf-Tap Lg Explanted:Qty: 1 on 08/04/2023 by Arya Khan MD at [facility] Right: [employer] 214.844 / / Screw 4.5mm 8mm 46mm 3.5mm Slf-Tap Lg Explanted:Qty: 1 on 08/04/2023 by Arya Khan MD at [facility] Right: [employer] 214.846 / / Procedures Procedure Name Priority Date/Time Associated Diagnosis Comments BASIC METABOLIC PANEL (CALCIUM TOTAL) AM Draw 08/06/2023 12:35 AM CDT from Last 3 Months or Most Recently Relevant to Health Maintenance Results * (ABNORMAL) BASIC METABOLIC PANEL (CALCIUM TOTAL) (08/06/2023 12:35 AM CDT) BUN 13 7 - 26 mg/dL 08/06/2023 3:03 AM [facility] Creatinine 0.77 0.56 - 0.96 mg/dL 08/06/2023 3:03 AM [facility] Sodium 138 136 - 145 mmol/L 08/06/2023 3:03 AM [facility] Potassium 3.4(L) 3.5 - 4.5 mmol/L 08/06/2023 3:03 AM [facility] Chloride 107 98 - 107 mmol/L 08/06/2023 3:03 AM [facility] CO2 22 22 - 29 mmol/L 08/06/2023 3:03 AM [facility] Glucose 89 70 - 115 mg/dL 08/06/2023 3:03 AM [facility] Calcium 8.3(L) 8.4 - 10.2 mg/dL 08/06/2023 3:03 AM [facility] Anion Gap 9 6 - 16 08/06/2023 3:03 AM [facility] BUN/Creatinine Ratio 17 7 - 23 08/06/2023 3:03 AM [facility] Osmolality Calculated 286 275 - 295 mOsm/kg 08/06/2023 3:03 AM [facility] eGFR by CKD-EPI >90 >=90 mL/min/1.7 3 m2 08/06/2023 3:03 AM CDT [facility] Blood BLOOD SPECIMEN / Unknown Lab Venipuncture / Unknown 08/06/2023 12:35 AM CDT 08/06/2023 2:28 AM CDT us Israel Canales MD LAB - CHEMISTRY ORDERABLES Fi nal Result [facility] [address] [place] [address], [facility] [phone] from Last 3 Months or Most Recently Relevant to Health Maintenance Insurance MEDICARE MEDICAID - [place] MEDICAID - [place] [facility] MANAGED MEDICARE ADV MEDICARE MEDICAID - OUT OF STATE Advance Directives * Full Code (Latest Code Status on File) Date Activated Date Inactivated Comments 08/03/2023 10:11 PM 08/06/2023 1:17 PM Care Teams Receiving Associate Store Relationship Specialty Start Date End Date Carmen Pinto PA-C PCP - General 06/23/18
--- OUTSIDE RECORDS SUMMARY | 2025-06-25 17:36 | XMS_ITS | Clinical Summary ---
Author Organization [facility] Address [address] [place] [address] Care Team Providers Care Industrial Editor Name Role Phone Mary Jameson Primary Care Provider [phone] Allergies Active Allergy Reactions Criticality Noted Date [...] 12/14/2008 Surgical History Surgery Date Site/Laterality Comments ME LAPAROSCOPY SURG CHOLECYSTECTOMY Cholecystectomy Laparoscopic - (Added by TW Conv) ME LIG/TRNSXJ FLP TUBE ABDL/ VAG APPR UNI/BI Tubal Ligation - (Added by TW Conv) ME TONSILLECTOMY & ADENOIDEC OBDULIO <AGE 12 Tonsillectomy With Adenoidectomy - (Added by TW Conv) ANKLE SURGERY Ankle Surgery - (Added by TW Conv) ME OPTX PATLLR FX W/INT FIXJ/PATLLC&SOFT TISS RPR [...] on file 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 Gender Identity Not on file Sexual Orientation [...] 10:30 PM CDT Height 167.6 cm (5' 6) 08/08/2022 11:34 AM CDT Body Mass Index [...] of 2 - PCV) 1994 Influenza Vaccine (#1) 2025 , 08/12/2018, 07/17/2018, Additional history exists Insurance [facility] MEDICARE [facility] [employer] MEDICARE GOLD [facility] MEDICARE [facility] Address: [facility] [id number] [place] [id number] Advance Directives For more information, please contact: [phone] Documents on File Type Date Recorded 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
[2025-06-25 18:18] VITALS: BP 107/92; PULSE 70; RESP 20; TEMP 36.4; O2SAT 99
--- NOTE | 2025-06-25 20:05 | PC.NURSE ---
Pt approached triage desk asking about wait times. Pt informed that we are not allowed to give out wait times. Pt then stated she has to be at work at 11 so she is going to leave. Pt advised to be seen at the nearest ED if symptoms warrant a return. Pt verbalize understanding and ambulated to ED with steady gait and no signs for concern at this time.
== END 2025-06-25 20:05 | disposition left against medical advice (07) ==
PROVIDERS: PCP Internal Medicine
DX: Z04.1 Encounter for examination and observation following transport accident (principal)
CPT/HCPCS: 99199